=== PATIENT | female | born 1965 | race Two or more races ===

== ENCOUNTER 2020-03-19 13:30 | Inpatient (IN) | payer MEDICAID, OTHER ==
[~2020-03-19] VITALS: Ht 172.7 cm; Wt 85.6 kg
[2020-03-19] MEDS: ACCU-CHEK COMFORT CURVE STRIP VI SCH ×6 (02:25→23:35)
[2020-03-19] MEDS: ATORVASTATIN 20 MG TAB PO SCH (07:41)
[2020-03-19] MEDS ORDERED: InsuLIN R (HUMAN) 100 UNITS in SODIUM CHL 0.9% 99 ML IV SCH (14:00)
[2020-03-19] MEDS ORDERED: INSULIN LANTUS (GLARGINE) 1 /0.01ml (100units/ml) SC ONE (14:00)
[2020-03-19] MEDS ORDERED: DEXTROSE (50%) 50ML SYRG IV PRN (14:00)
[2020-03-19 15:02] LABS: Basophils # (auto) 0.1 10 ^3/uL (0-0.2); Basophils % (auto) 0.4 % (0.0-2.0); Eosinophils # (auto) 0 10 ^3/uL (0-0.8); Eosinophils % (auto) 0.1 % (0.0-7.0); Hemoglobin 12.4 g/dL (12.2-16.2); Lymphocytes # (auto) 0.6 10 ^3/uL (0.4-5.4); Lymphocytes % (auto) 4.8 % (10.0-50.0); Mean Corpuscular Hemoglobin 29.8 pg (28.0-32.0); Mean Corpuscular Hgb Conc. 32.6 g/dL (32.0-36.0); Mean Corpuscular Volume 91.5 fL (80.0-100.0); Monocytes # (auto) 0.8 10 ^3/uL (0-1.3); Monocytes % (auto) 6.2 % (0.0-12.0); Neutrophils # (auto) 11.6 10 ^3/uL (1.6-8.6); Neutrophils % (auto) 88.5 % (37.0-80.0); Platelet Count (auto) 242 10^3/uL (140-450); Red Blood Cells 4.15 10^6/uL (4.0-5.20); Red Cell Distribution Width 12.6 % (11.8-14.3); White Blood Cell 13.1 10^3/uL (4.4-10.8)
[2020-03-19 15:20] LABS: Calcium 8.3 mg/dL (8.5-10.1); Magnesium 2.7 mg/dL (1.6-2.6); Potassium 4.1 mmol/L (3.5-5.1)
[2020-03-19 15:29] LABS: BUN/Creatinine Ratio 38.9
[2020-03-19 15:46] LABS: Phosphorus 8.8 mg/dL (2.5-4.90)
[2020-03-19] MEDS ORDERED: NOREPINEPHRINE 8 MG/250ML KIT 250 ML IV SCH (16:00)
[2020-03-19] MEDS ORDERED: NOREPINEPHRINE 8 MG/250ML KIT 250 ML IV ONE (16:18)
[2020-03-19] MEDS: SODIUM CHLORIDE 0.9% 1,000 ML IV SCH ×5 (16:57→22:07)
[2020-03-19] MEDS ORDERED: MORPHINE SULF INJ 2 MG/ML SYRINGE 1ML IV PRN ×2 (17:15→18:15)
[2020-03-19] MEDS ORDERED: SODIUM CHLORIDE 0.9% 2,000 ML IV ONE (17:15)
[2020-03-19] MEDS ORDERED: NITROGLYCERIN 0.4 MG SL TAB SL PRN ×2 (17:15→18:15)
[2020-03-19] MEDS: InsuLIN R (HUMAN) 100 UNITS in SODIUM CHL 0.9% 99 ML IV SCH (17:51)
[2020-03-19] MEDS ORDERED: SODIUM CHLORIDE 0.9% 1,000 ML IV SCH (18:00)
[2020-03-19] MEDS ORDERED: cefTRIAXone 1GM/50ML D5W 50 ML IV ONE (18:15)
[2020-03-19] MEDS ORDERED: HYDROcodone-ACET 5/325MG TAB PO PRN (18:15)
[2020-03-19] MEDS ORDERED: ACETAMINOPHEN 325 MG TAB PO PRN (18:15)
[2020-03-19] MEDS ORDERED: DOCUSATE SOD 100 MG CAP PO PRN (18:15)
[2020-03-19] MEDS ORDERED: ALUM & MAG HYDROX-SIMETH LIQ(MAALOX) 30 ML PO PRN (18:15)
[2020-03-19] MEDS ORDERED: LORazepam 0.5 MG TAB PO PRN (18:15)
[2020-03-19] MEDS ORDERED: METOCLOPRAMIDE HCL 5MG/ml INJ 2ml VIAL IV PRN ×2 (18:15→19:30)
[2020-03-19] MEDS ORDERED: BACL10TA PO (18:42)
[2020-03-19] MEDS ORDERED: HYDR25TA5 PO (18:42)
[2020-03-19] MEDS ORDERED: ROSU10TA16 PO (18:42)
[2020-03-19] MEDS ORDERED: METF-771 PO (18:42)
[2020-03-19] MEDS ORDERED: FAMO40TA7 PO (18:42)
[2020-03-19] MEDS ORDERED: LISI-648 PO (18:42)
[2020-03-19] MEDS ORDERED: MELO10CA2 PO (18:42)
[2020-03-19] MEDS ORDERED: NORT50CA57 PO (18:42)
[2020-03-19] MEDS ORDERED: BUPR-60 PO (18:43)
[2020-03-19 19:27] LABS: Urine Bacteria FEW /hpf (None Seen); Urine Blood 3+ /uL (Negative); Urine Hyaline Cast FEW /lpf (0 - 2); Urine Mucus FEW (None Seen); Urine Specific Gravity 1.021 (1.001-1.035); Urine WBC 10 /hpf (0 - 5)
[2020-03-19 19:37] LABS: Alcohol, Urine < 3.0 mg/dL (0-10); Amphetamine Screen, Urine NEGATIVE (NEGATIVE); Barbiturate Scree,Urine NEGATIVE (NEGATIVE); Benzodiazephine Screen, Urine NEGATIVE (NEGATIVE); Cannabinoid Screen, Urine NEGATIVE (NEGATIVE); Cocaine Screen, Urine NEGATIVE (NEGATIVE); Opiate Scree,Urine NEGATIVE (NEGATIVE); Phencyclidine Screen, Urine NEGATIVE (NEGATIVE)
[2020-03-19 20:27] LABS: Anion Gap 25 (5-15); BUN/Creatinine Ratio 41.4; Calcium 8.8 mg/dL (8.5-10.1); Carbon Dioxide 12 mmol/L (21-32); Chloride 97 mmol/L (98-107); GFR African American 22 mL/min; GFR Non-African American 18 mL/min; Potassium 3.6 mmol/L (3.5-5.1); Sodium 134 mmol/L (136-145)
[2020-03-19 20:50] LABS: Blood Urea Nitrogen 118 mg/dL (7-18)
[2020-03-19 21:36] LABS: Hemoglobin 13.2 g/dL (12.2-16.2)
[2020-03-19 21:57] LABS: Cholesterol 166 mg/dL (< 200); HDL Cholesterol 39 mg/dL (40-59); LDL Cholesterol 65 mg/dL (< 100); Triglycerides 358 mg/dL (< 150)
[2020-03-19 21:58] LABS: Blood Alcohol < 3.0 mg/dL (0-5)
[2020-03-19 22:03] LABS: Glucose 436 mg/dL (74-106)
[2020-03-19 22:23] LABS: INR 1.04 (0.9-1.15); Partial Thromboplastin Time 24.9 sec (23.0-31.2)
[2020-03-19] MEDS: SODIUM BICARBONATE 50ML VIAL 100 ML in SOD CHL 0.45% 1,000 ML IV SCH (23:00)
[2020-03-19] MEDS ORDERED: SODIUM BICARBONATE 8.4 % INJ 50ML VIAL IV ONE ×2 (23:07→23:10)
[2020-03-19 23:56] LABS: BUN/Creatinine Ratio 42.4; Calcium 8.2 mg/dL (8.5-10.1); Potassium 3.1 mmol/L (3.5-5.1)
[2020-03-20] MEDS ORDERED: POTASSIUM CHLORIDE 40 MEQ, LIDOCAINE 1% (LOCAL ANESTH.) 4 ML in SODIUM CHL 0.9% 250 ML IV ONE ×2 (01:00→18:00)
[2020-03-20] MEDS ORDERED: PANTOPRAZOLE 40 MG/10 ML VIAL INJ IV ONE (01:15)
[2020-03-20] MEDS ORDERED: ALBUMIN 5% 250 ML IV ONE (01:45)
[2020-03-20] MEDS ORDERED: LORazepam 2MG/ML-1ML VIAL IV ONE (02:30)
[2020-03-20 02:40] LABS: BUN/Creatinine Ratio 44.7; Calcium 8.5 mg/dL (8.5-10.1); Potassium 3.4 mmol/L (3.5-5.1)
[2020-03-20] MEDS: InsuLIN R (HUMAN) 100 UNITS in SODIUM CHL 0.9% 99 ML IV SCH ×2 (02:40→14:11)
[2020-03-20] MEDS: SODIUM CHLORIDE 0.9% 1,000 ML IV SCH ×5 (06:53→10:15)
[2020-03-20] MEDS: ACCU-CHEK COMFORT CURVE STRIP VI SCH ×9 (07:30→17:40)
[2020-03-20] MEDS: buPROPion HCL 75 MG TAB PO SCH ×2 (07:44→17:40)
[2020-03-20 08:56] LABS: Hematocrit 31.8 % (36.0-46.0); Hemoglobin 11.2 g/dL (12.2-16.2); Mean Corpuscular Hemoglobin 30.3 pg (28.0-32.0); Mean Corpuscular Hgb Conc. 35.3 g/dL (32.0-36.0); Mean Corpuscular Volume 85.8 fL (80.0-100.0); Platelet Count (auto) 182 10^3/uL (140-450); Red Blood Cells 3.71 10^6/uL (4.0-5.20); Red Cell Distribution Width 12.6 % (11.8-14.3); White Blood Cell 6.5 10^3/uL (4.4-10.8)
[2020-03-20] MEDS ORDERED: cefTRIAXone 1GM/50ML D5W 50 ML IV SCH (09:00)
[2020-03-20 09:15] LABS: Albumin 2.2 g/dL (3.4-5.0); Calcium 7.7 mg/dL (8.5-10.1); INR 1.14 (0.9-1.15); Magnesium 2.1 mg/dL (1.6-2.6); Partial Thromboplastin Time 25.6 sec (23.0-31.2); Potassium 3.4 mmol/L (3.5-5.1)
[2020-03-20 09:18] LABS: Basophils % (manual) 0 (0.0-2.0); Blast Cells 0; Eosinophils % (manual) 0 (0-7); Promyelocytes % 0; Reactive Lymphocytes 0
[2020-03-20 09:28] LABS: Bilirubin, Total 0.2 mg/dL (0.2-1.0); Phosphorus 2.9 mg/dL (2.5-4.90); Total Protein 5.8 g/dL (6.4-8.2)
[2020-03-20 09:41] LABS: BUN/Creatinine Ratio 52.8
[2020-03-20] MEDS ORDERED: ASPirin 81 mg TAB PO SCH (10:00)
[2020-03-20] MEDS ORDERED: INSULIN LANTUS (GLARGINE) 1 /0.01ml (100units/ml) SC SCH (10:00)
[2020-03-20] MEDS ORDERED: PANTOPRAZOLE 40 MG/10 ML VIAL INJ IV SCH (10:00)
[2020-03-20] MEDS ORDERED: ENOXAPARIN SOD 40 MG/0.4 ML SYRINGE SC SCH (10:00)
[2020-03-20 10:04] LABS: Band Neutrophils % (manual) 15; Lymphocytes % (manual) 9 (10.0-50.0); Metamyelocytes % 2; Monocytes % (manual) 4 (0-12); Myelocytes % 1
[2020-03-20] MEDS: SODIUM BICARBONATE 50ML VIAL 100 ML in SOD CHL 0.45% 1,000 ML IV SCH (14:10)
[2020-03-20] MEDS ORDERED: D5W/SOD CHL 0.45%/KCL 20MEQ 1,000 ML IV SCH (14:15)
[2020-03-20] MEDS ORDERED: D5W/SOD CHL 0.45% 1,000 ML IV SCH ×2 (14:15)
[2020-03-20] MEDS ORDERED: ETOMIDATE (2MG/ML) 20ML VIAL IV ONE ×2 (14:51→15:00)
[2020-03-20] MEDS ORDERED: MIDAZOLAM DRIP 50 mg/50mL 50 ML IV ONE (14:52)
[2020-03-20] MEDS ORDERED: SUCCINYLCHOLINE CHLORIDE 20 MG/ML 10ML VIAL IV ONE ×2 (14:52→15:00)
[2020-03-20] MEDS: MIDAZOLAM DRIP 50 mg/50mL 50 ML IV SCH ×2 (15:02→18:05)
[2020-03-20 15:22] VITALS: BP 112/55
[2020-03-20] MEDS ORDERED: VANCOMYCIN PER PHARMACY 0 MG IV SCH (15:30)
[2020-03-20] MEDS ORDERED: VANCOMYCIN 1GM/250ML 250 ML IV ONE (15:45)
[2020-03-20] MEDS ORDERED: DEXTROSE (50%) 50ML SYRG IV PRN ×3 (15:45→17:15)
[2020-03-20] MEDS ORDERED: INSULIN LANTUS (GLARGINE) 1 /0.01ml (100units/ml) SC ONE (16:00)
[2020-03-20] MEDS ORDERED: ALBUMIN 25% 100 ML IV ONE (16:00)
[2020-03-20] MEDS ORDERED: NOREPINEPHRINE 8 MG/250ML KIT 250 ML IV ONE (16:12)
[2020-03-20] MEDS: fentaNYL Drip 2500mCg/250mlNS 250 ML IV SCH (16:14)
[2020-03-20] MEDS ORDERED: CLOTRIMAZOLE 1 % CREAM 15GM TOP ONE (16:15)
[2020-03-20] MEDS: NOREPINEPHRINE 8 MG/250ML KIT 250 ML IV SCH (16:24)
[2020-03-20] MEDS ORDERED: SUCRALFATE 1 GM/10 ML ORAL SUSP PO ONE (16:30)
[2020-03-20] MEDS ORDERED: SODIUM CHLORIDE 0.9% 1,000 ML IV ONE (16:30)
[2020-03-20] MEDS: D5W/ SOD CHL 0.9%/KCL 20MEQ 1,000 ML IV SCH (16:37)
[2020-03-20 16:38] VITALS: BP 110/53
[2020-03-20 17:17] LABS: Basophils # (auto) 0 10 ^3/uL (0-0.2); Basophils % (auto) 0.3 % (0.0-2.0); Eosinophils # (auto) 0 10 ^3/uL (0-0.8); Hematocrit 30.3 % (36.0-46.0); Hemoglobin 10.9 g/dL (12.2-16.2); Lymphocytes # (auto) 0.4 10 ^3/uL (0.4-5.4); Lymphocytes % (auto) 4.4 % (10.0-50.0); Mean Corpuscular Hemoglobin 30.7 pg (28.0-32.0); Mean Corpuscular Hgb Conc. 35.9 g/dL (32.0-36.0); Mean Corpuscular Volume 85.6 fL (80.0-100.0); Monocytes # (auto) 0.4 10 ^3/uL (0-1.3); Monocytes % (auto) 4.7 % (0.0-12.0); Neutrophils % (auto) 90.6 % (37.0-80.0); Nucleated Red Blood Cells % 0.1 %; Platelet Count (auto) 172 10^3/uL (140-450); Red Blood Cells 3.54 10^6/uL (4.0-5.20); Red Cell Distribution Width 12.8 % (11.8-14.3); White Blood Cell 8.8 10^3/uL (4.4-10.8)
[2020-03-20 17:31] LABS: BUN/Creatinine Ratio 60.8; Calcium 7.2 mg/dL (8.5-10.1)
[2020-03-20] MEDS ORDERED: ACETAMINOPHEN 650 mg PER 20.3 mL UD ONE (17:31)
[2020-03-20] MEDS: InsuLIN REG 1unit/0.01ml Soln (100units/ml) SC SCH (17:39)
[2020-03-20] MEDS ORDERED: InsuLIN REG 1unit/0.01ml Soln (100units/ml) SC SCH ×2 (18:00)
[2020-03-20] MEDS ORDERED: ACCU-CHEK COMFORT CURVE STRIP VI SCH ×2 (18:00)
[2020-03-20] MEDS ORDERED: POTASSIUM EFFERVESENT TAB 25 MEQ GT ONE (18:00)
[2020-03-20] MEDS ORDERED: SOD CHL 0.9%/ KCL 20MEQ 1,000 ML IV SCH (19:15)
[2020-03-20] MEDS ORDERED: POTASSIUM CHLORIDE 60 MEQ, LIDOCAINE 1% (LOCAL ANESTH.) 6 ML in SODIUM CHL 0.9% 500 ML IV ONE (19:30)
[2020-03-20 19:40] VITALS: BP 91/47
[2020-03-20] MEDS: CLOTRIMAZOLE 1 % CREAM 15GM TOP SCH (22:00)
[2020-03-20] MEDS: SUCRALFATE 1 GM/10 ML ORAL SUSP PO SCH (22:00)
[2020-03-20] MEDS: PANTOPRAZOLE 40 MG/10 ML VIAL INJ IV SCH (22:00)
[2020-03-20] MEDS: PIPERACILLIN-TAZOB 3.375GM 100 ML IV SCH (22:00)
[2020-03-20] MEDS: ATORVASTATIN 20 MG TAB PO SCH (22:00)
[2020-03-20] MEDS: NYSTATIN TOPICAL POWDER 15GM TOP SCH (22:00)
[2020-03-20] MEDS: NORTRIPTYLINE HCL 10 MG CAP PO SCH (22:00)
[2020-03-20 22:07] VITALS: BP 120/60
[2020-03-20] MEDS: ALBUMIN 25% 100 ML IV SCH (23:54)
[2020-03-21] VITALS (7 sets, daily range): BP systolic 85–130; BP diastolic 50–65
[2020-03-21] MEDS: ACCU-CHEK COMFORT CURVE STRIP VI SCH ×5 (00:06→23:54)
[2020-03-21] MEDS: InsuLIN REG 1unit/0.01ml Soln (100units/ml) SC SCH ×4 (00:08→18:01)
[2020-03-21] MEDS: D5W/ SOD CHL 0.9%/KCL 20MEQ 1,000 ML IV SCH ×2 (00:22→08:47)
[2020-03-21] MEDS: MIDAZOLAM DRIP 50 mg/50mL 50 ML IV SCH ×2 (02:22→04:02)
[2020-03-21 05:40] LABS: Basophils # (auto) 0 10 ^3/uL (0-0.2); Basophils % (auto) 0.1 % (0.0-2.0); Eosinophils # (auto) 0 10 ^3/uL (0-0.8); Eosinophils % (auto) 0.1 % (0.0-7.0); Hematocrit 27.9 % (36.0-46.0); Hemoglobin 9.9 g/dL (12.2-16.2); Lymphocytes # (auto) 0.6 10 ^3/uL (0.4-5.4); Lymphocytes % (auto) 6.9 % (10.0-50.0); Mean Corpuscular Hemoglobin 30.6 pg (28.0-32.0); Mean Corpuscular Hgb Conc. 35.6 g/dL (32.0-36.0); Mean Corpuscular Volume 85.9 fL (80.0-100.0); Monocytes # (auto) 0.3 10 ^3/uL (0-1.3); Monocytes % (auto) 3.5 % (0.0-12.0); Neutrophils # (auto) 8.4 10 ^3/uL (1.6-8.6); Neutrophils % (auto) 89.4 % (37.0-80.0); Platelet Count (auto) 131 10^3/uL (140-450); Red Blood Cells 3.25 10^6/uL (4.0-5.20); Red Cell Distribution Width 13.2 % (11.8-14.3); White Blood Cell 9.4 10^3/uL (4.4-10.8)
[2020-03-21 05:46] LABS: Potassium 3.7 mmol/L (3.5-5.1)
[2020-03-21 05:47] LABS: INR 1.35 (0.9-1.15); Partial Thromboplastin Time 30.8 sec (23.0-31.2)
[2020-03-21 06:01] LABS: Albumin 2.6 g/dL (3.4-5.0); BUN/Creatinine Ratio 55.9; Bilirubin, Total 0.4 mg/dL (0.2-1.0); Calcium 7.5 mg/dL (8.5-10.1); Magnesium 1.9 mg/dL (1.6-2.6); Total Protein 5.9 g/dL (6.4-8.2)
[2020-03-21] MEDS: PIPERACILLIN-TAZOB 3.375GM 100 ML IV SCH ×3 (06:17→22:05)
[2020-03-21] MEDS: ACETAMINOPHEN 650 mg PER 20.3 mL UD PO PRN ×2 (06:27→14:53)
[2020-03-21] MEDS: SUCRALFATE 1 GM/10 ML ORAL SUSP PO SCH ×4 (06:27→22:06)
[2020-03-21] MEDS: buPROPion HCL 75 MG TAB PO SCH ×2 (06:27→18:07)
[2020-03-21] MEDS: PANTOPRAZOLE 40 MG/10 ML VIAL INJ IV SCH ×2 (08:48→22:05)
[2020-03-21] MEDS: ALBUMIN 25% 100 ML IV SCH (08:48)
[2020-03-21] MEDS: CLOTRIMAZOLE 1 % CREAM 15GM TOP SCH ×2 (08:48→22:06)
[2020-03-21] MEDS: NYSTATIN TOPICAL POWDER 15GM TOP SCH ×2 (08:48→22:06)
[2020-03-21] MEDS ORDERED: INSULIN LANTUS (GLARGINE) 1 /0.01ml (100units/ml) SC ONE (11:45)
[2020-03-21] MEDS ORDERED: VANCOMYCIN 1GM/250ML 250 ML IV ONE (12:15)
[2020-03-21] MEDS ORDERED: SOD CHL 0.45% 1,000 ML IV ONE (14:45)
[2020-03-21] MEDS: fentaNYL Drip 2500mCg/250mlNS 250 ML IV SCH (15:00)
[2020-03-21] MEDS: SOD CHL 0.45% WITH 20MEQ KCL 1,000 ML IV SCH ×2 (15:12→23:05)
[2020-03-21 15:54] LABS: Amylase 154 U/L (25-115); Lipase 277 U/L (73-393)
[2020-03-21] MEDS: NOREPINEPHRINE 8 MG/250ML KIT 250 ML IV SCH (16:50)
[2020-03-21] MEDS: NORTRIPTYLINE HCL 10 MG CAP PO SCH (22:06)
[2020-03-21] MEDS: ATORVASTATIN 20 MG TAB PO SCH (22:06)
[2020-03-22] VITALS (76 sets, daily range): BP systolic 85–124; BP diastolic 50–74
[2020-03-22] MEDS: PIPERACILLIN-TAZOB 3.375GM 100 ML IV SCH (06:01)
[2020-03-22] MEDS: InsuLIN REG 1unit/0.01ml Soln (100units/ml) SC SCH ×4 (06:02→18:20)
[2020-03-22] MEDS: ACCU-CHEK COMFORT CURVE STRIP VI SCH ×3 (06:04→18:18)
[2020-03-22] MEDS: SUCRALFATE 1 GM/10 ML ORAL SUSP PO SCH ×4 (06:16→21:01)
[2020-03-22] MEDS: buPROPion HCL 75 MG TAB PO SCH ×2 (06:16→19:00)
[2020-03-22] MEDS: SOD CHL 0.45% WITH 20MEQ KCL 1,000 ML IV SCH (08:00)
[2020-03-22 08:49] LABS: Basophils # (auto) 0.1 10 ^3/uL (0-0.2); Basophils % (auto) 0.9 % (0.0-2.0); Eosinophils # (auto) 0.2 10 ^3/uL (0-0.8); Eosinophils % (auto) 1.3 % (0.0-7.0); Hematocrit 28.5 % (36.0-46.0); Hemoglobin 9.7 g/dL (12.2-16.2); Lymphocytes # (auto) 0.8 10 ^3/uL (0.4-5.4); Lymphocytes % (auto) 5.5 % (10.0-50.0); Mean Corpuscular Volume 88.2 fL (80.0-100.0); Monocytes # (auto) 0.7 10 ^3/uL (0-1.3); Monocytes % (auto) 4.6 % (0.0-12.0); Neutrophils # (auto) 13.4 10 ^3/uL (1.6-8.6); Neutrophils % (auto) 87.7 % (37.0-80.0); Platelet Count (auto) 151 10^3/uL (140-450); Red Blood Cells 3.24 10^6/uL (4.0-5.20); Red Cell Distribution Width 13.5 % (11.8-14.3); White Blood Cell 15.3 10^3/uL (4.4-10.8)
[2020-03-22 08:59] LABS: Potassium 4.7 mmol/L (3.5-5.1)
[2020-03-22 09:04] LABS: BUN/Creatinine Ratio 42.9; Calcium 7.4 mg/dL (8.5-10.1)
[2020-03-22] MEDS: NYSTATIN TOPICAL POWDER 15GM TOP SCH ×2 (10:00→21:02)
[2020-03-22] MEDS: CLOTRIMAZOLE 1 % CREAM 15GM TOP SCH ×2 (10:00→21:02)
[2020-03-22] MEDS: PANTOPRAZOLE 40 MG/10 ML VIAL INJ IV SCH (10:00)
[2020-03-22] MEDS: SOD CHL 0.45% 1,000 ML IV SCH (10:45)
[2020-03-22] MEDS: INSULIN LANTUS (GLARGINE) 1 /0.01ml (100units/ml) SC SCH (11:43)
[2020-03-22] MEDS ORDERED: VANCOMYCIN 1GM/250ML 250 ML IV ONE (12:00)
[2020-03-22] MEDS: CLINDAMYCIN 600MG IV 50 ML IV SCH ×2 (14:22→21:01)
[2020-03-22] MEDS: MIDAZOLAM DRIP 50 mg/50mL 50 ML IV SCH (15:00)
[2020-03-22] MEDS: fentaNYL Drip 2500mCg/250mlNS 250 ML IV SCH ×2 (15:00→20:00)
[2020-03-22] MEDS: MEROPENEM 1GM IVPB 100 ML IV SCH (16:00)
[2020-03-22] MEDS: NOREPINEPHRINE 8 MG/250ML KIT 250 ML IV SCH (16:30)
[2020-03-22] MEDS ORDERED: Glucerna 1.2 Cal 1Liter BOTTLE GT SCH (17:15)
[2020-03-22] MEDS: FAMOTIDINE (10MG/ML) 2ML VL IV SCH (21:01)
[2020-03-22] MEDS: ATORVASTATIN 20 MG TAB PO SCH (21:01)
[2020-03-22] MEDS: NORTRIPTYLINE HCL 10 MG CAP PO SCH (21:02)
[2020-03-23] VITALS (75 sets, daily range): BP systolic 91–137; BP diastolic 55–79
[2020-03-23] MEDS: MEROPENEM 1GM IVPB 100 ML IV SCH (03:00)
[2020-03-23 03:55] LABS: Basophils # (auto) 0 10 ^3/uL (0-0.2); Basophils % (auto) 0.3 % (0.0-2.0); Eosinophils # (auto) 0.2 10 ^3/uL (0-0.8); Eosinophils % (auto) 1.6 % (0.0-7.0); Hematocrit 28.4 % (36.0-46.0); Hemoglobin 9.7 g/dL (12.2-16.2); Lymphocytes # (auto) 0.7 10 ^3/uL (0.4-5.4); Lymphocytes % (auto) 4.7 % (10.0-50.0); Mean Corpuscular Hemoglobin 29.8 pg (28.0-32.0); Mean Corpuscular Volume 87.8 fL (80.0-100.0); Monocytes # (auto) 1.1 10 ^3/uL (0-1.3); Monocytes % (auto) 7.3 % (0.0-12.0); Neutrophils # (auto) 12.9 10 ^3/uL (1.6-8.6); Neutrophils % (auto) 86.1 % (37.0-80.0); Nucleated Red Blood Cells % 0.1 %; Platelet Count (auto) 162 10^3/uL (140-450); Red Blood Cells 3.24 10^6/uL (4.0-5.20); Red Cell Distribution Width 13.2 % (11.8-14.3)
[2020-03-23 05:06] LABS: Potassium 3.9 mmol/L (3.5-5.1)
[2020-03-23 05:12] LABS: BUN/Creatinine Ratio 37.6; Calcium 7.6 mg/dL (8.5-10.1)
[2020-03-23] MEDS: CLINDAMYCIN 600MG IV 50 ML IV SCH (06:01)
[2020-03-23] MEDS: SUCRALFATE 1 GM/10 ML ORAL SUSP PO SCH ×4 (06:04→22:00)
[2020-03-23] MEDS: ACCU-CHEK COMFORT CURVE STRIP VI SCH ×5 (06:04→23:46)
[2020-03-23] MEDS: NOREPINEPHRINE 8 MG/250ML KIT 250 ML IV SCH (06:04)
[2020-03-23] MEDS: buPROPion HCL 75 MG TAB PO SCH ×2 (06:04→17:58)
[2020-03-23] MEDS: InsuLIN REG 1unit/0.01ml Soln (100units/ml) SC SCH ×5 (06:04→23:46)
[2020-03-23] MEDS: SOD CHL 0.45% 1,000 ML IV SCH ×2 (07:00→13:25)
[2020-03-23] MEDS: INSULIN LANTUS (GLARGINE) 1 /0.01ml (100units/ml) SC SCH (09:25)
[2020-03-23] MEDS: CLOTRIMAZOLE 1 % CREAM 15GM TOP SCH ×2 (10:00→22:00)
[2020-03-23] MEDS: NYSTATIN TOPICAL POWDER 15GM TOP SCH ×2 (10:00→22:00)
[2020-03-23] MEDS: Glucerna Carbsteady SHAKE Vanilla 8oz NG SCH ×3 (14:00→22:00)
[2020-03-23] MEDS: levoFLOXacin 750MG 150 ML IV SCH (14:26)
[2020-03-23] MEDS: LINEZOLID 600MG/300ML 300 ML IV SCH (17:57)
[2020-03-23] MEDS: MIDAZOLAM DRIP 50 mg/50mL 50 ML IV SCH (19:03)
[2020-03-23] MEDS: NORTRIPTYLINE HCL 10 MG CAP PO SCH (22:00)
[2020-03-23] MEDS: FAMOTIDINE (10MG/ML) 2ML VL IV SCH (22:00)
[2020-03-23] MEDS: ATORVASTATIN 20 MG TAB PO SCH (22:00)
[2020-03-23] MEDS: fentaNYL Drip 2500mCg/250mlNS 250 ML IV SCH (23:20)
[2020-03-24] VITALS (88 sets, daily range): BP systolic 88–129; BP diastolic 57–98
[2020-03-24] MEDS: Glucerna Carbsteady SHAKE Vanilla 8oz NG SCH ×6 (02:14→22:28)
[2020-03-24 04:15] LABS: Basophils # (auto) 0 10 ^3/uL (0-0.2); Basophils % (auto) 0.3 % (0.0-2.0); Eosinophils # (auto) 0.1 10 ^3/uL (0-0.8); Eosinophils % (auto) 0.7 % (0.0-7.0); Hematocrit 27.5 % (36.0-46.0); Hemoglobin 9.3 g/dL (12.2-16.2); Lymphocytes # (auto) 0.7 10 ^3/uL (0.4-5.4); Lymphocytes % (auto) 5.4 % (10.0-50.0); Mean Corpuscular Hemoglobin 29.6 pg (28.0-32.0); Mean Corpuscular Hgb Conc. 33.9 g/dL (32.0-36.0); Mean Corpuscular Volume 87.4 fL (80.0-100.0); Monocytes # (auto) 1.2 10 ^3/uL (0-1.3); Monocytes % (auto) 9.5 % (0.0-12.0); Neutrophils # (auto) 10.7 10 ^3/uL (1.6-8.6); Neutrophils % (auto) 84.1 % (37.0-80.0); Platelet Count (auto) 145 10^3/uL (140-450); Red Blood Cells 3.14 10^6/uL (4.0-5.20); Red Cell Distribution Width 13.7 % (11.8-14.3); White Blood Cell 12.8 10^3/uL (4.4-10.8)
[2020-03-24 04:35] LABS: Albumin 1.7 g/dL (3.4-5.0); BUN/Creatinine Ratio 37.1; Calcium 7.9 mg/dL (8.5-10.1); Potassium 3.4 mmol/L (3.5-5.1)
[2020-03-24 04:38] LABS: Bilirubin, Total 0.4 mg/dL (0.2-1.0); Total Protein 5.2 g/dL (6.4-8.2)
[2020-03-24] MEDS: ACCU-CHEK COMFORT CURVE STRIP VI SCH ×3 (05:55→17:27)
[2020-03-24] MEDS: InsuLIN REG 1unit/0.01ml Soln (100units/ml) SC SCH ×3 (05:56→18:04)
[2020-03-24] MEDS: LINEZOLID 600MG/300ML 300 ML IV SCH ×2 (05:58→17:27)
[2020-03-24] MEDS: SUCRALFATE 1 GM/10 ML ORAL SUSP PO SCH ×4 (06:34→22:25)
[2020-03-24] MEDS: buPROPion HCL 75 MG TAB PO SCH ×2 (06:34→17:28)
[2020-03-24] MEDS ORDERED: SOD CHL 0.45% 1,000 ML IV SCH (09:30)
[2020-03-24] MEDS: FREE WATER GT SCH ×4 (10:39→22:24)
[2020-03-24] MEDS: INSULIN LANTUS (GLARGINE) 1 /0.01ml (100units/ml) SC SCH ×2 (10:41→22:28)
[2020-03-24] MEDS: CLOTRIMAZOLE 1 % CREAM 15GM TOP SCH ×2 (10:41→22:26)
[2020-03-24] MEDS: NYSTATIN TOPICAL POWDER 15GM TOP SCH ×2 (10:41→22:26)
[2020-03-24] MEDS ORDERED: POTASSIUM EFFERVESENT TAB 25 MEQ GT ONE (11:30)
[2020-03-24] MEDS ORDERED: FLUCONAZOLE 200MG/100ML 100 ML IV ONE (13:15)
[2020-03-24] MEDS: MIDAZOLAM DRIP 50 mg/50mL 50 ML IV SCH (15:00)
[2020-03-24] MEDS: NOREPINEPHRINE 8 MG/250ML KIT 250 ML IV SCH (16:17)
[2020-03-24] MEDS: fentaNYL Drip 2500mCg/250mlNS 250 ML IV SCH (18:39)
[2020-03-24] MEDS: ATORVASTATIN 20 MG TAB PO SCH (22:25)
[2020-03-24] MEDS: NORTRIPTYLINE HCL 10 MG CAP PO SCH (22:25)
[2020-03-24] MEDS: FAMOTIDINE (10MG/ML) 2ML VL IV SCH (22:25)
[2020-03-25] VITALS (56 sets, daily range): BP systolic 90–114; BP diastolic 57–73
[2020-03-25] MEDS: FREE WATER GT SCH ×5 (02:00→16:54)
[2020-03-25] MEDS: Glucerna Carbsteady SHAKE Vanilla 8oz NG SCH ×6 (02:00→23:04)
[2020-03-25 04:22] LABS: Basophils # (auto) 0 10 ^3/uL (0-0.2); Basophils % (auto) 0.4 % (0.0-2.0); Eosinophils # (auto) 0.2 10 ^3/uL (0-0.8); Eosinophils % (auto) 1.6 % (0.0-7.0); Hematocrit 25.6 % (36.0-46.0); Lymphocytes # (auto) 0.7 10 ^3/uL (0.4-5.4); Lymphocytes % (auto) 7.3 % (10.0-50.0); Mean Corpuscular Hemoglobin 30.7 pg (28.0-32.0); Mean Corpuscular Volume 87.8 fL (80.0-100.0); Monocytes # (auto) 0.9 10 ^3/uL (0-1.3); Neutrophils % (auto) 81.7 % (37.0-80.0); Nucleated Red Blood Cells % 0.1 %; Platelet Count (auto) 128 10^3/uL (140-450); Red Blood Cells 2.92 10^6/uL (4.0-5.20); Red Cell Distribution Width 13.9 % (11.8-14.3); White Blood Cell 9.8 10^3/uL (4.4-10.8)
[2020-03-25 04:43] LABS: Albumin 1.5 g/dL (3.4-5.0); BUN/Creatinine Ratio 39.9; Calcium 8.2 mg/dL (8.5-10.1); Potassium 3.4 mmol/L (3.5-5.1)
[2020-03-25 04:46] LABS: Bilirubin, Total 0.3 mg/dL (0.2-1.0); Total Protein 5.3 g/dL (6.4-8.2)
[2020-03-25] MEDS: LINEZOLID 600MG/300ML 300 ML IV SCH ×2 (05:36→16:55)
[2020-03-25] MEDS: SUCRALFATE 1 GM/10 ML ORAL SUSP PO SCH ×4 (05:37→23:04)
[2020-03-25] MEDS: buPROPion HCL 75 MG TAB PO SCH ×2 (05:37→18:00)
[2020-03-25] MEDS: ACCU-CHEK COMFORT CURVE STRIP VI SCH ×5 (05:53→23:27)
[2020-03-25] MEDS: InsuLIN REG 1unit/0.01ml Soln (100units/ml) SC SCH ×5 (05:55→23:25)
[2020-03-25] MEDS ORDERED: ALBUMIN 25% 100 ML IV ONE (09:15)
[2020-03-25] MEDS ORDERED: FUROSEMIDE 40 MG/4 ML VIAL IV ONE (09:15)
[2020-03-25] MEDS ORDERED: POTASSIUM EFFERVESENT TAB 25 MEQ GT ONE (09:15)
[2020-03-25] MEDS: CLOTRIMAZOLE 1 % CREAM 15GM TOP SCH ×2 (09:36→23:07)
[2020-03-25] MEDS: FLUCONAZOLE 200MG/100ML 100 ML IV SCH (09:36)
[2020-03-25] MEDS: NYSTATIN TOPICAL POWDER 15GM TOP SCH ×2 (09:36→23:07)
[2020-03-25] MEDS: INSULIN LANTUS (GLARGINE) 1 /0.01ml (100units/ml) SC SCH ×2 (09:46→23:06)
[2020-03-25 14:13] LABS: INR 1.14 (0.9-1.15); Partial Thromboplastin Time 29.5 sec (23.0-31.2)
[2020-03-25] MEDS: levoFLOXacin 750MG 150 ML IV SCH (14:25)
[2020-03-25] MEDS: fentaNYL Drip 2500mCg/250mlNS 250 ML IV SCH (17:30)
[2020-03-25] MEDS: FAMOTIDINE (10MG/ML) 2ML VL IV SCH (23:03)
[2020-03-25] MEDS: NORTRIPTYLINE HCL 10 MG CAP PO SCH (23:05)
[2020-03-25] MEDS: ATORVASTATIN 20 MG TAB PO SCH (23:05)
[2020-03-26] VITALS (57 sets, daily range): BP systolic 94–121; BP diastolic 57–76
[2020-03-26] MEDS: Glucerna Carbsteady SHAKE Vanilla 8oz NG SCH ×5 (02:00→16:18)
[2020-03-26 05:09] LABS: Basophils # (auto) 0 10 ^3/uL (0-0.2); Eosinophils # (auto) 0.1 10 ^3/uL (0-0.8); Red Blood Cells 2.74 10^6/uL (4.0-5.20)
[2020-03-26 05:13] LABS: Basophils % (auto) 0.2 % (0.0-2.0); Eosinophils % (auto) 1.2 % (0.0-7.0); Hematocrit 24.1 % (36.0-46.0); Hemoglobin 8.3 g/dL (12.2-16.2); Lymphocytes % (auto) 8.8 % (10.0-50.0); Mean Corpuscular Hemoglobin 30.2 pg (28.0-32.0); Mean Corpuscular Hgb Conc. 34.4 g/dL (32.0-36.0); Mean Corpuscular Volume 87.8 fL (80.0-100.0); Monocytes # (auto) 0.7 10 ^3/uL (0-1.3); Neutrophils # (auto) 9.7 10 ^3/uL (1.6-8.6); Neutrophils % (auto) 83.8 % (37.0-80.0); Platelet Count (auto) 135 10^3/uL (140-450); Red Cell Distribution Width 13.3 % (11.8-14.3); White Blood Cell 11.6 10^3/uL (4.4-10.8)
[2020-03-26 05:27] LABS: Albumin 1.7 g/dL (3.4-5.0); Calcium 7.7 mg/dL (8.5-10.1); Magnesium 1.7 mg/dL (1.6-2.6)
[2020-03-26 05:30] LABS: BUN/Creatinine Ratio 38.6; Bilirubin, Total 0.3 mg/dL (0.2-1.0); Phosphorus 1.8 mg/dL (2.5-4.90); Total Protein 5.6 g/dL (6.4-8.2)
[2020-03-26] MEDS: LINEZOLID 600MG/300ML 300 ML IV SCH ×2 (06:00→17:00)
[2020-03-26] MEDS: ACCU-CHEK COMFORT CURVE STRIP VI SCH ×3 (06:00→17:08)
[2020-03-26] MEDS: InsuLIN REG 1unit/0.01ml Soln (100units/ml) SC SCH ×3 (06:46→17:08)
[2020-03-26] MEDS: SUCRALFATE 1 GM/10 ML ORAL SUSP PO SCH ×4 (06:47→21:29)
[2020-03-26] MEDS: buPROPion HCL 75 MG TAB PO SCH ×2 (06:47→18:00)
[2020-03-26] MEDS: CLOTRIMAZOLE 1 % CREAM 15GM TOP SCH ×2 (09:00→21:29)
[2020-03-26] MEDS: NYSTATIN TOPICAL POWDER 15GM TOP SCH ×2 (09:00→21:31)
[2020-03-26] MEDS: FLUCONAZOLE 200MG/100ML 100 ML IV SCH (09:00)
[2020-03-26] MEDS: INSULIN LANTUS (GLARGINE) 1 /0.01ml (100units/ml) SC SCH ×2 (09:00→21:31)
[2020-03-26] MEDS: fentaNYL Drip 2500mCg/250mlNS 250 ML IV SCH (11:33)
[2020-03-26] MEDS ORDERED: FLUCONAZOLE 200MG/100ML 100 ML IV ONE (12:00)
[2020-03-26] MEDS: MIDAZOLAM DRIP 50 mg/50mL 50 ML IV SCH ×2 (15:00→18:30)
[2020-03-26] MEDS: NOREPINEPHRINE 8 MG/250ML KIT 250 ML IV SCH (16:30)
[2020-03-26] MEDS: FAMOTIDINE (10MG/ML) 2ML VL IV SCH (21:29)
[2020-03-26] MEDS: NORTRIPTYLINE HCL 10 MG CAP PO SCH (21:30)
[2020-03-26] MEDS: ATORVASTATIN 20 MG TAB PO SCH (21:30)
[2020-03-27] VITALS (61 sets, daily range): BP systolic 100–146; BP diastolic 56–83
[2020-03-27] MEDS: InsuLIN REG 1unit/0.01ml Soln (100units/ml) SC SCH ×4 (00:28→17:00)
[2020-03-27 04:10] LABS: Basophils # (auto) 0 10 ^3/uL (0-0.2); Basophils % (auto) 0.2 % (0.0-2.0); Eosinophils # (auto) 0.1 10 ^3/uL (0-0.8); Eosinophils % (auto) 1.2 % (0.0-7.0); Hematocrit 24.8 % (36.0-46.0); Hemoglobin 8.3 g/dL (12.2-16.2); Lymphocytes # (auto) 1.1 10 ^3/uL (0.4-5.4); Lymphocytes % (auto) 9.2 % (10.0-50.0); Mean Corpuscular Hemoglobin 29.4 pg (28.0-32.0); Mean Corpuscular Hgb Conc. 33.4 g/dL (32.0-36.0); Mean Corpuscular Volume 88.1 fL (80.0-100.0); Monocytes # (auto) 0.6 10 ^3/uL (0-1.3); Monocytes % (auto) 4.8 % (0.0-12.0); Neutrophils # (auto) 9.8 10 ^3/uL (1.6-8.6); Neutrophils % (auto) 84.6 % (37.0-80.0); Platelet Count (auto) 159 10^3/uL (140-450); Red Blood Cells 2.82 10^6/uL (4.0-5.20); Red Cell Distribution Width 13.3 % (11.8-14.3); White Blood Cell 11.6 10^3/uL (4.4-10.8)
[2020-03-27 04:41] LABS: Potassium 3.9 mmol/L (3.5-5.1)
[2020-03-27 04:48] LABS: Albumin 1.5 g/dL (3.4-5.0); BUN/Creatinine Ratio 37.7; Bilirubin, Total 0.3 mg/dL (0.2-1.0); Calcium 6.3 mg/dL (8.5-10.1); Magnesium 1.6 mg/dL (1.6-2.6); Phosphorus 2.6 mg/dL (2.5-4.90); Total Protein 5.6 g/dL (6.4-8.2)
[2020-03-27] MEDS: fentaNYL Drip 2500mCg/250mlNS 250 ML IV SCH ×2 (05:55→19:19)
[2020-03-27] MEDS: LINEZOLID 600MG/300ML 300 ML IV SCH ×2 (05:56→17:00)
[2020-03-27] MEDS: ACCU-CHEK COMFORT CURVE STRIP VI SCH ×4 (05:56→17:00)
[2020-03-27] MEDS: MIDAZOLAM DRIP 50 mg/50mL 50 ML IV SCH ×2 (06:03→19:20)
[2020-03-27] MEDS: SUCRALFATE 1 GM/10 ML ORAL SUSP PO SCH ×4 (06:30→22:07)
[2020-03-27] MEDS: buPROPion HCL 75 MG TAB PO SCH ×2 (06:30→17:45)
[2020-03-27] MEDS: CLOTRIMAZOLE 1 % CREAM 15GM TOP SCH ×2 (09:32→22:07)
[2020-03-27] MEDS: NYSTATIN TOPICAL POWDER 15GM TOP SCH ×2 (09:32→22:07)
[2020-03-27] MEDS: INSULIN LANTUS (GLARGINE) 1 /0.01ml (100units/ml) SC SCH ×2 (09:33→22:08)
[2020-03-27] MEDS ORDERED: FLUCONAZOLE 200MG/100ML 100 ML IV SCH (10:00)
[2020-03-27] MEDS ORDERED: MICAFUNGIN SODIUM 100 MG in SODIUM CHL 0.9% 100 ML IV ONE (10:30)
[2020-03-27] MEDS ORDERED: ceFAZolin 1GM VL ONE (11:42)
[2020-03-27] MEDS ORDERED: MIDAZOLAM HCL 1MG/1ML-2 ML VIAL IV ONE (11:45)
[2020-03-27] MEDS ORDERED: fentaNYL CITRATE 100 MCG/2 ML VL IV ONE (11:45)
[2020-03-27] MEDS ORDERED: HYDROmorphone HCL 2 MG/ML VL IV PRN (12:00)
[2020-03-27] MEDS ORDERED: ROCURONIUM 10MG/ML 10ML VIAL IV ONE (12:30)
[2020-03-27] MEDS ORDERED: SODIUM CHLORIDE LOCK 10 ML ONE (12:38)
[2020-03-27] MEDS ORDERED: PHENYLEPHRINE HCL 10 MG/ML VL ONE (12:38)
[2020-03-27] MEDS: levoFLOXacin 750MG 150 ML IV SCH (13:52)
[2020-03-27] MEDS ORDERED: Glucerna 1.2 Cal 1Liter BOTTLE GT SCH (14:30)
[2020-03-27] MEDS: NOREPINEPHRINE 8 MG/250ML KIT 250 ML IV SCH (16:30)
[2020-03-27] MEDS: FAMOTIDINE (10MG/ML) 2ML VL IV SCH (22:07)
[2020-03-27] MEDS: ATORVASTATIN 20 MG TAB PO SCH (22:07)
[2020-03-27] MEDS: NORTRIPTYLINE HCL 10 MG CAP PO SCH (22:07)
[2020-03-28] VITALS (42 sets, daily range): BP systolic 100–134; BP diastolic 55–85
[2020-03-28] MEDS: ACCU-CHEK COMFORT CURVE STRIP VI SCH ×4 (00:11→17:00)
[2020-03-28] MEDS: InsuLIN REG 1unit/0.01ml Soln (100units/ml) SC SCH ×4 (00:11→17:00)
[2020-03-28 04:58] LABS: Basophils # (auto) 0 10 ^3/uL (0-0.2); Eosinophils # (auto) 0.1 10 ^3/uL (0-0.8); Monocytes # (auto) 0.3 10 ^3/uL (0-1.3)
[2020-03-28 05:01] LABS: Basophils % (auto) 0.3 % (0.0-2.0); Eosinophils % (auto) 1.3 % (0.0-7.0); Hematocrit 23.2 % (36.0-46.0); Hemoglobin 8.1 g/dL (12.2-16.2); Lymphocytes # (auto) 0.7 10 ^3/uL (0.4-5.4); Lymphocytes % (auto) 8.7 % (10.0-50.0); Mean Corpuscular Hemoglobin 30.7 pg (28.0-32.0); Mean Corpuscular Hgb Conc. 34.7 g/dL (32.0-36.0); Mean Corpuscular Volume 88.4 fL (80.0-100.0); Neutrophils # (auto) 7.1 10 ^3/uL (1.6-8.6); Neutrophils % (auto) 85.7 % (37.0-80.0); Platelet Count (auto) 201 10^3/uL (140-450); Red Blood Cells 2.62 10^6/uL (4.0-5.20); Red Cell Distribution Width 13.4 % (11.8-14.3); White Blood Cell 8.2 10^3/uL (4.4-10.8)
[2020-03-28 05:15] LABS: Albumin 1.4 g/dL (3.4-5.0); Magnesium 1.6 mg/dL (1.6-2.6); Potassium 3.8 mmol/L (3.5-5.1)
[2020-03-28 05:20] LABS: BUN/Creatinine Ratio 35.5; Bilirubin, Total 0.2 mg/dL (0.2-1.0); Phosphorus 3.4 mg/dL (2.5-4.90); Total Protein 5.7 g/dL (6.4-8.2)
[2020-03-28] MEDS: LINEZOLID 600MG/300ML 300 ML IV SCH (06:05)
[2020-03-28] MEDS: SUCRALFATE 1 GM/10 ML ORAL SUSP PO SCH ×4 (07:00→21:52)
[2020-03-28] MEDS: buPROPion HCL 75 MG TAB PO SCH ×2 (07:00→16:00)
[2020-03-28] MEDS: MIDAZOLAM DRIP 50 mg/50mL 50 ML IV SCH (08:32)
[2020-03-28] MEDS: INSULIN LANTUS (GLARGINE) 1 /0.01ml (100units/ml) SC SCH ×2 (09:25→22:03)
[2020-03-28] MEDS: CLOTRIMAZOLE 1 % CREAM 15GM TOP SCH ×2 (09:25→21:54)
[2020-03-28] MEDS: levoFLOXacin 750MG 150 ML IV SCH (09:25)
[2020-03-28] MEDS: NYSTATIN TOPICAL POWDER 15GM TOP SCH ×2 (09:25→21:54)
[2020-03-28] MEDS ORDERED: POTASSIUM EFFERVESENT TAB 25 MEQ GT ONE (09:30)
[2020-03-28] MEDS ORDERED: ALBUMIN 25% 100 ML IV ONE (09:30)
[2020-03-28] MEDS ORDERED: FUROSEMIDE 40 MG/4 ML VIAL IV ONE (09:30)
[2020-03-28] MEDS: MICAFUNGIN SODIUM 100 MG in SODIUM CHL 0.9% 100 ML IV SCH (10:00)
[2020-03-28] MEDS: DOXYCYCLINE 100MG/250ML 250 ML IV SCH (13:45)
[2020-03-28] MEDS ORDERED: CEFEPIME 1 GM in SODIUM CHL 0.9% 50 ML IV SCH (14:00)
[2020-03-28] MEDS: ACETAMINOPHEN 650 mg PER 20.3 mL UD PO PRN (15:27)
[2020-03-28] MEDS: CEFEPIME 1 GM in SODIUM CHL 0.9% 50 ML IV SCH ×2 (15:30→21:56)
[2020-03-28] MEDS: NOREPINEPHRINE 8 MG/250ML KIT 250 ML IV SCH ×2 (16:30→19:30)
[2020-03-28] MEDS: fentaNYL Drip 2500mCg/250mlNS 250 ML IV SCH (17:05)
[2020-03-28] MEDS: ATORVASTATIN 20 MG TAB PO SCH (21:52)
[2020-03-28] MEDS: FAMOTIDINE (10MG/ML) 2ML VL IV SCH (21:53)
[2020-03-28] MEDS: NORTRIPTYLINE HCL 10 MG CAP PO SCH (21:53)
[2020-03-29] VITALS (53 sets, daily range): BP systolic 103–150; BP diastolic 52–87
[2020-03-29] MEDS: ACCU-CHEK COMFORT CURVE STRIP VI SCH ×4 (00:29→16:55)
[2020-03-29] MEDS: InsuLIN REG 1unit/0.01ml Soln (100units/ml) SC SCH ×4 (00:31→16:50)
[2020-03-29] MEDS: DOXYCYCLINE 100MG/250ML 250 ML IV SCH ×2 (01:28→12:05)
[2020-03-29] MEDS: CEFEPIME 1 GM in SODIUM CHL 0.9% 50 ML IV SCH ×3 (06:13→21:42)
[2020-03-29] MEDS: SUCRALFATE 1 GM/10 ML ORAL SUSP PO SCH ×4 (06:13→21:43)
[2020-03-29] MEDS: buPROPion HCL 75 MG TAB PO SCH ×2 (06:16→17:00)
[2020-03-29 06:18] LABS: Basophils # (auto) 0 10 ^3/uL (0-0.2); Basophils % (auto) 0.4 % (0.0-2.0); Eosinophils # (auto) 0.1 10 ^3/uL (0-0.8); Eosinophils % (auto) 1.3 % (0.0-7.0); Hemoglobin 8.5 g/dL (12.2-16.2); Lymphocytes # (auto) 0.8 10 ^3/uL (0.4-5.4); Lymphocytes % (auto) 11.4 % (10.0-50.0); Mean Corpuscular Hemoglobin 30.1 pg (28.0-32.0); Mean Corpuscular Hgb Conc. 34.2 g/dL (32.0-36.0); Monocytes # (auto) 0.3 10 ^3/uL (0-1.3); Monocytes % (auto) 4.8 % (0.0-12.0); Neutrophils # (auto) 5.5 10 ^3/uL (1.6-8.6); Neutrophils % (auto) 82.1 % (37.0-80.0); Nucleated Red Blood Cells % 0.1 %; Platelet Count (auto) 265 10^3/uL (140-450); Red Blood Cells 2.84 10^6/uL (4.0-5.20); Red Cell Distribution Width 13.4 % (11.8-14.3); White Blood Cell 6.8 10^3/uL (4.4-10.8)
[2020-03-29 06:36] LABS: Albumin 1.6 g/dL (3.4-5.0); Calcium 8.3 mg/dL (8.5-10.1); Magnesium 1.2 mg/dL (1.6-2.6); Potassium 3.7 mmol/L (3.5-5.1)
[2020-03-29 06:39] LABS: Bilirubin, Total 0.2 mg/dL (0.2-1.0); Total Protein 5.9 g/dL (6.4-8.2)
[2020-03-29 06:43] LABS: Phosphorus 3.7 mg/dL (2.5-4.90)
[2020-03-29] MEDS: NYSTATIN TOPICAL POWDER 15GM TOP SCH ×2 (09:26→22:58)
[2020-03-29] MEDS: MICAFUNGIN SODIUM 100 MG in SODIUM CHL 0.9% 100 ML IV SCH (09:26)
[2020-03-29] MEDS: CLOTRIMAZOLE 1 % CREAM 15GM TOP SCH ×2 (09:26→22:58)
[2020-03-29] MEDS: INSULIN LANTUS (GLARGINE) 1 /0.01ml (100units/ml) SC SCH ×2 (09:35→22:00)
[2020-03-29] MEDS: fentaNYL Drip 2500mCg/250mlNS 250 ML IV SCH (13:55)
[2020-03-29] MEDS: MIDAZOLAM DRIP 50 mg/50mL 50 ML IV SCH (15:00)
[2020-03-29] MEDS: NOREPINEPHRINE 8 MG/250ML KIT 250 ML IV SCH (16:30)
[2020-03-29] MEDS: FAMOTIDINE (10MG/ML) 2ML VL IV SCH (21:42)
[2020-03-29] MEDS: ATORVASTATIN 20 MG TAB PO SCH (21:43)
[2020-03-29] MEDS: NORTRIPTYLINE HCL 10 MG CAP PO SCH (21:43)
[2020-03-30] VITALS (29 sets, daily range): BP systolic 100–155; BP diastolic 52–93
[2020-03-30] MEDS: ACCU-CHEK COMFORT CURVE STRIP VI SCH ×4 (00:21→18:03)
[2020-03-30] MEDS: InsuLIN REG 1unit/0.01ml Soln (100units/ml) SC SCH ×4 (00:32→18:03)
[2020-03-30] MEDS: DOXYCYCLINE 100MG/250ML 250 ML IV SCH ×2 (01:23→13:30)
[2020-03-30 05:14] LABS: Basophils # (auto) 0.1 10 ^3/uL (0-0.2); Eosinophils # (auto) 0.1 10 ^3/uL (0-0.8); Eosinophils % (auto) 1.4 % (0.0-7.0); Monocytes # (auto) 0.5 10 ^3/uL (0-1.3); Monocytes % (auto) 6.7 % (0.0-12.0); Red Cell Distribution Width 13.1 % (11.8-14.3); White Blood Cell 7.1 10^3/uL (4.4-10.8)
[2020-03-30 05:18] LABS: Basophils % (auto) 0.8 % (0.0-2.0); Hematocrit 22.5 % (36.0-46.0); Hemoglobin 7.6 g/dL (12.2-16.2); Lymphocytes # (auto) 1.1 10 ^3/uL (0.4-5.4); Lymphocytes % (auto) 15.8 % (10.0-50.0); Mean Corpuscular Hgb Conc. 33.9 g/dL (32.0-36.0); Mean Corpuscular Volume 88.5 fL (80.0-100.0); Neutrophils # (auto) 5.4 10 ^3/uL (1.6-8.6); Neutrophils % (auto) 75.3 % (37.0-80.0); Platelet Count (auto) 281 10^3/uL (140-450); Red Blood Cells 2.54 10^6/uL (4.0-5.20)
[2020-03-30 05:32] LABS: Albumin 1.5 g/dL (3.4-5.0); Calcium 8.1 mg/dL (8.5-10.1); Magnesium 1.4 mg/dL (1.6-2.6); Potassium 3.4 mmol/L (3.5-5.1)
[2020-03-30 05:37] LABS: BUN/Creatinine Ratio 30.8; Bilirubin, Total 0.4 mg/dL (0.2-1.0); Phosphorus 3.4 mg/dL (2.5-4.90); Total Protein 5.9 g/dL (6.4-8.2)
[2020-03-30] MEDS: CEFEPIME 1 GM in SODIUM CHL 0.9% 50 ML IV SCH ×3 (06:13→22:00)
[2020-03-30] MEDS: buPROPion HCL 75 MG TAB PO SCH ×3 (07:00→19:00)
[2020-03-30] MEDS: SUCRALFATE 1 GM/10 ML ORAL SUSP PO SCH ×5 (07:00→22:00)
[2020-03-30] MEDS: MIDAZOLAM DRIP 50 mg/50mL 50 ML IV SCH (09:35)
[2020-03-30] MEDS: NYSTATIN TOPICAL POWDER 15GM TOP SCH ×2 (10:00→22:00)
[2020-03-30] MEDS: INSULIN LANTUS (GLARGINE) 1 /0.01ml (100units/ml) SC SCH ×2 (10:00→22:00)
[2020-03-30] MEDS: MICAFUNGIN SODIUM 100 MG in SODIUM CHL 0.9% 100 ML IV SCH (10:00)
[2020-03-30] MEDS: CLOTRIMAZOLE 1 % CREAM 15GM TOP SCH ×2 (10:00→22:00)
[2020-03-30] MEDS: NOREPINEPHRINE 8 MG/250ML KIT 250 ML IV SCH (16:30)
[2020-03-30] MEDS: fentaNYL Drip 2500mCg/250mlNS 250 ML IV SCH (16:41)
[2020-03-30] MEDS: FAMOTIDINE (10MG/ML) 2ML VL IV SCH (22:00)
[2020-03-30] MEDS: ATORVASTATIN 20 MG TAB PO SCH (22:00)
[2020-03-30] MEDS: NORTRIPTYLINE HCL 10 MG CAP PO SCH (22:00)
[2020-03-31] VITALS (35 sets, daily range): BP systolic 92–157; BP diastolic 44–93
[2020-03-31] MEDS: DOXYCYCLINE 100MG/250ML 250 ML IV SCH ×2 (01:30→13:27)
[2020-03-31] MEDS: MIDAZOLAM DRIP 50 mg/50mL 50 ML IV SCH ×2 (02:00→15:00)
[2020-03-31] MEDS: fentaNYL Drip 2500mCg/250mlNS 250 ML IV SCH ×2 (03:00→15:00)
[2020-03-31] MEDS: ACETAMINOPHEN 650 mg PER 20.3 mL UD PO PRN (05:08)
[2020-03-31] MEDS: ACCU-CHEK COMFORT CURVE STRIP VI SCH ×4 (06:00→18:25)
[2020-03-31] MEDS: InsuLIN REG 1unit/0.01ml Soln (100units/ml) SC SCH ×5 (06:00→18:27)
[2020-03-31] MEDS: CEFEPIME 1 GM in SODIUM CHL 0.9% 50 ML IV SCH ×3 (06:00→21:26)
[2020-03-31 06:41] LABS: Basophils # (auto) 0.1 10 ^3/uL (0-0.2); Eosinophils # (auto) 0.1 10 ^3/uL (0-0.8); Lymphocytes # (auto) 1.6 10 ^3/uL (0.4-5.4)
[2020-03-31 06:44] LABS: Eosinophils % (auto) 1.8 % (0.0-7.0); Hematocrit 20.3 % (36.0-46.0); Lymphocytes % (auto) 25.2 % (10.0-50.0); Mean Corpuscular Hemoglobin 30.2 pg (28.0-32.0); Mean Corpuscular Hgb Conc. 34.5 g/dL (32.0-36.0); Mean Corpuscular Volume 87.6 fL (80.0-100.0); Monocytes # (auto) 0.5 10 ^3/uL (0-1.3); Monocytes % (auto) 7.1 % (0.0-12.0); Neutrophils # (auto) 4.1 10 ^3/uL (1.6-8.6); Neutrophils % (auto) 64.9 % (37.0-80.0); Platelet Count (auto) 281 10^3/uL (140-450); Red Blood Cells 2.32 10^6/uL (4.0-5.20); Red Cell Distribution Width 13.1 % (11.8-14.3); White Blood Cell 6.3 10^3/uL (4.4-10.8)
[2020-03-31] MEDS: buPROPion HCL 75 MG TAB PO SCH ×2 (07:00→19:00)
[2020-03-31] MEDS: SUCRALFATE 1 GM/10 ML ORAL SUSP PO SCH ×4 (07:00→21:27)
[2020-03-31 07:07] LABS: Calcium 8.1 mg/dL (8.5-10.1)
[2020-03-31 07:09] LABS: BUN/Creatinine Ratio 26.7
[2020-03-31] MEDS: NYSTATIN TOPICAL POWDER 15GM TOP SCH ×2 (10:00→21:27)
[2020-03-31] MEDS: CLOTRIMAZOLE 1 % CREAM 15GM TOP SCH ×2 (10:00→21:27)
[2020-03-31] MEDS: MICAFUNGIN SODIUM 100 MG in SODIUM CHL 0.9% 100 ML IV SCH (10:00)
[2020-03-31] MEDS: INSULIN LANTUS (GLARGINE) 1 /0.01ml (100units/ml) SC SCH ×2 (11:41→22:00)
[2020-03-31] MEDS: POTASSIUM CHL 20MEQ/100ML 100 ML IV SCH ×3 (13:30→17:15)
[2020-03-31] MEDS ORDERED: POLYETHYLENE GLYCOL 17 GM PWDR PO ONE (13:30)
[2020-03-31] MEDS: NOREPINEPHRINE 8 MG/250ML KIT 250 ML IV SCH (16:30)
[2020-03-31] MEDS: FAMOTIDINE (10MG/ML) 2ML VL IV SCH (21:26)
[2020-03-31] MEDS: ATORVASTATIN 20 MG TAB PO SCH (21:27)
[2020-03-31] MEDS: NORTRIPTYLINE HCL 10 MG CAP PO SCH (21:27)
[2020-04-01] VITALS (56 sets, daily range): BP systolic 97–168; BP diastolic 55–103
[2020-04-01] MEDS: DOXYCYCLINE 100MG/250ML 250 ML IV SCH ×2 (01:10→13:46)
[2020-04-01] MEDS: LORazepam 2MG/ML-1ML VIAL IV PRN ×3 (01:55→22:30)
[2020-04-01] MEDS: fentaNYL Drip 2500mCg/250mlNS 250 ML IV SCH (03:50)
[2020-04-01 05:01] LABS: Basophils # (auto) 0.1 10 ^3/uL (0-0.2); Basophils % (auto) 1.7 % (0.0-2.0); Eosinophils # (auto) 0.2 10 ^3/uL (0-0.8); Eosinophils % (auto) 2.3 % (0.0-7.0); Hematocrit 26.2 % (36.0-46.0); Lymphocytes # (auto) 1.2 10 ^3/uL (0.4-5.4); Lymphocytes % (auto) 17.4 % (10.0-50.0); Mean Corpuscular Hemoglobin 30.1 pg (28.0-32.0); Mean Corpuscular Hgb Conc. 34.4 g/dL (32.0-36.0); Mean Corpuscular Volume 87.6 fL (80.0-100.0); Monocytes # (auto) 0.7 10 ^3/uL (0-1.3); Monocytes % (auto) 9.7 % (0.0-12.0); Neutrophils # (auto) 4.9 10 ^3/uL (1.6-8.6); Neutrophils % (auto) 68.9 % (37.0-80.0); Nucleated Red Blood Cells % 0.1 %; Platelet Count (auto) 326 10^3/uL (140-450); Red Blood Cells 2.98 10^6/uL (4.0-5.20); Red Cell Distribution Width 13.2 % (11.8-14.3)
[2020-04-01 05:16] LABS: Calcium 8.3 mg/dL (8.5-10.1); Potassium 3.5 mmol/L (3.5-5.1)
[2020-04-01] MEDS: InsuLIN REG 1unit/0.01ml Soln (100units/ml) SC SCH ×3 (05:27→18:00)
[2020-04-01] MEDS: SUCRALFATE 1 GM/10 ML ORAL SUSP PO SCH ×4 (05:27→21:54)
[2020-04-01] MEDS: ACCU-CHEK COMFORT CURVE STRIP VI SCH ×4 (05:27→18:00)
[2020-04-01] MEDS: CEFEPIME 1 GM in SODIUM CHL 0.9% 50 ML IV SCH ×3 (05:27→21:53)
[2020-04-01] MEDS: buPROPion HCL 75 MG TAB PO SCH ×2 (07:00→19:00)
[2020-04-01] MEDS: NYSTATIN TOPICAL POWDER 15GM TOP SCH ×2 (09:33→21:54)
[2020-04-01] MEDS: CLOTRIMAZOLE 1 % CREAM 15GM TOP SCH ×2 (09:33→21:54)
[2020-04-01] MEDS: MICAFUNGIN SODIUM 100 MG in SODIUM CHL 0.9% 100 ML IV SCH (09:33)
[2020-04-01] MEDS: FAMOTIDINE (10MG/ML) 2ML VL IV SCH ×2 (09:33→21:53)
[2020-04-01] MEDS: INSULIN LANTUS (GLARGINE) 1 /0.01ml (100units/ml) SC SCH ×2 (12:00→22:00)
[2020-04-01] MEDS: MIDAZOLAM DRIP 50 mg/50mL 50 ML IV SCH (15:00)
[2020-04-01] MEDS: NOREPINEPHRINE 8 MG/250ML KIT 250 ML IV SCH (16:30)
[2020-04-01] MEDS: ATORVASTATIN 20 MG TAB PO SCH (21:54)
[2020-04-01] MEDS: NORTRIPTYLINE HCL 10 MG CAP PO SCH (21:54)
[2020-04-02] VITALS (89 sets, daily range): BP systolic 85–197; BP diastolic 42–140
[2020-04-02] MEDS: DOXYCYCLINE 100MG/250ML 250 ML IV SCH ×2 (00:39→15:39)
[2020-04-02] MEDS: fentaNYL Drip 2500mCg/250mlNS 250 ML IV SCH ×2 (04:00→22:40)
[2020-04-02] MEDS: CEFEPIME 1 GM in SODIUM CHL 0.9% 50 ML IV SCH ×3 (05:30→22:08)
[2020-04-02] MEDS: ACCU-CHEK COMFORT CURVE STRIP VI SCH ×5 (05:30→23:30)
[2020-04-02] MEDS: InsuLIN REG 1unit/0.01ml Soln (100units/ml) SC SCH ×5 (05:32→23:30)
[2020-04-02] MEDS: buPROPion HCL 75 MG TAB PO SCH ×2 (06:22→18:53)
[2020-04-02] MEDS: SUCRALFATE 1 GM/10 ML ORAL SUSP PO SCH ×4 (06:22→21:47)
[2020-04-02] MEDS: INSULIN LANTUS (GLARGINE) 1 /0.01ml (100units/ml) SC SCH ×2 (10:00→22:00)
[2020-04-02] MEDS: FAMOTIDINE (10MG/ML) 2ML VL IV SCH ×2 (10:45→21:47)
[2020-04-02] MEDS: NYSTATIN TOPICAL POWDER 15GM TOP SCH ×2 (12:27→22:09)
[2020-04-02] MEDS: MICAFUNGIN SODIUM 100 MG in SODIUM CHL 0.9% 100 ML IV SCH (12:27)
[2020-04-02] MEDS: CLOTRIMAZOLE 1 % CREAM 15GM TOP SCH ×2 (12:27→22:30)
[2020-04-02] MEDS: MIDAZOLAM DRIP 50 mg/50mL 50 ML IV SCH (15:00)
[2020-04-02] MEDS ORDERED: EPINEPHrine HCL 0.5 ML NEB ONE (15:33)
[2020-04-02] MEDS ORDERED: ALBUTEROL SULF 2.5 MG/0.5ML(0.5%) NEB SOLN ONE (15:33)
[2020-04-02] MEDS ORDERED: IPRATROPIUM BROM 0.5 MG/2.5ML INH SOL ONE (15:39)
[2020-04-02] MEDS ORDERED: ETOMIDATE (2MG/ML) 20ML VIAL IV ONE ×2 (15:48→16:30)
[2020-04-02] MEDS ORDERED: FUROSEMIDE 40 MG/4 ML VIAL ONE (15:48)
[2020-04-02] MEDS ORDERED: SUCCINYLCHOLINE CHLORIDE 20 MG/ML 10ML VIAL IV ONE (15:49)
[2020-04-02] MEDS ORDERED: PROPOFOL 100 ML IV ONE (16:10)
[2020-04-02] MEDS: PROPOFOL 100 ML IV SCH (16:30)
[2020-04-02] MEDS ORDERED: FUROSEMIDE 40 MG/4 ML VIAL IV ONE (16:30)
[2020-04-02] MEDS: NOREPINEPHRINE 8 MG/250ML KIT 250 ML IV SCH (16:30)
[2020-04-02] MEDS: NORTRIPTYLINE HCL 10 MG CAP PO SCH (21:47)
[2020-04-02] MEDS: ATORVASTATIN 20 MG TAB PO SCH (21:47)
[2020-04-03] VITALS (59 sets, daily range): BP systolic 85–150; BP diastolic 47–69
[2020-04-03] MEDS: DOXYCYCLINE 100MG/250ML 250 ML IV SCH ×2 (01:30→13:47)
[2020-04-03] MEDS: PROPOFOL 100 ML IV SCH ×2 (03:51→11:52)
[2020-04-03 05:09] LABS: BUN/Creatinine Ratio 24.6; Calcium 7.7 mg/dL (8.5-10.1)
[2020-04-03 05:14] LABS: Basophils # (auto) 0.1 10 ^3/uL (0-0.2); Basophils % (auto) 1.4 % (0.0-2.0); Eosinophils # (auto) 0.2 10 ^3/uL (0-0.8); Eosinophils % (auto) 3.1 % (0.0-7.0); Hematocrit 25.1 % (36.0-46.0); Hemoglobin 8.6 g/dL (12.2-16.2); Lymphocytes % (auto) 27.8 % (10.0-50.0); Mean Corpuscular Hemoglobin 29.8 pg (28.0-32.0); Mean Corpuscular Hgb Conc. 34.1 g/dL (32.0-36.0); Mean Corpuscular Volume 87.6 fL (80.0-100.0); Monocytes # (auto) 0.8 10 ^3/uL (0-1.3); Monocytes % (auto) 10.6 % (0.0-12.0); Neutrophils # (auto) 4.2 10 ^3/uL (1.6-8.6); Neutrophils % (auto) 57.1 % (37.0-80.0); Nucleated Red Blood Cells % 0.1 %; Platelet Count (auto) 396 10^3/uL (140-450); Red Blood Cells 2.87 10^6/uL (4.0-5.20); Red Cell Distribution Width 13.1 % (11.8-14.3); White Blood Cell 7.4 10^3/uL (4.4-10.8)
[2020-04-03 05:45] LABS: Potassium 2.5 mmol/L (3.5-5.1)
[2020-04-03] MEDS: InsuLIN REG 1unit/0.01ml Soln (100units/ml) SC SCH ×3 (06:00→18:00)
[2020-04-03] MEDS: ACCU-CHEK COMFORT CURVE STRIP VI SCH ×3 (06:05→18:13)
[2020-04-03] MEDS: CEFEPIME 1 GM in SODIUM CHL 0.9% 50 ML IV SCH ×3 (06:05→21:39)
[2020-04-03] MEDS: POTASSIUM CHL 20MEQ/100ML 100 ML IV SCH ×2 (06:38→08:15)
[2020-04-03] MEDS: SUCRALFATE 1 GM/10 ML ORAL SUSP PO SCH ×4 (06:39→22:12)
[2020-04-03] MEDS: buPROPion HCL 75 MG TAB PO SCH ×2 (06:39→22:11)
[2020-04-03] MEDS: CLOTRIMAZOLE 1 % CREAM 15GM TOP SCH ×2 (10:00→22:00)
[2020-04-03] MEDS: NYSTATIN TOPICAL POWDER 15GM TOP SCH ×2 (10:00→22:00)
[2020-04-03] MEDS: FAMOTIDINE (10MG/ML) 2ML VL IV SCH ×2 (10:00→22:12)
[2020-04-03] MEDS: MICAFUNGIN SODIUM 100 MG in SODIUM CHL 0.9% 100 ML IV SCH (10:00)
[2020-04-03] MEDS: NOREPINEPHRINE 8 MG/250ML KIT 250 ML IV SCH (10:00)
[2020-04-03] MEDS: INSULIN LANTUS (GLARGINE) 1 /0.01ml (100units/ml) SC SCH ×2 (12:00→21:38)
[2020-04-03] MEDS: MIDAZOLAM DRIP 50 mg/50mL 50 ML IV SCH (15:00)
[2020-04-03 16:20] LABS: INR 1.24 (0.9-1.15); Partial Thromboplastin Time 27.4 sec (23.0-31.2)
[2020-04-03] MEDS ORDERED: POTASSIUM CHLORIDE 40 MEQ, LIDOCAINE 1% (LOCAL ANESTH.) 4 ML in SODIUM CHL 0.9% 250 ML IV ONE (20:00)
[2020-04-03] MEDS: METOCLOPRAMIDE HCL 5MG/ml INJ 2ml VIAL IV SCH (22:12)
[2020-04-03] MEDS: NORTRIPTYLINE HCL 10 MG CAP PO SCH (22:13)
[2020-04-03] MEDS: ATORVASTATIN 20 MG TAB PO SCH (22:13)
[2020-04-03] MEDS: fentaNYL Drip 2500mCg/250mlNS 250 ML IV SCH (23:40)
[2020-04-04] VITALS (75 sets, daily range): BP systolic 76–176; BP diastolic 48–90
[2020-04-04] MEDS: ACCU-CHEK COMFORT CURVE STRIP VI SCH ×4 (00:27→17:35)
[2020-04-04] MEDS: DOXYCYCLINE 100MG/250ML 250 ML IV SCH ×2 (01:45→13:51)
[2020-04-04 04:16] LABS: Basophils # (auto) 0.1 10 ^3/uL (0-0.2); Basophils % (auto) 1.5 % (0.0-2.0); Eosinophils # (auto) 0.3 10 ^3/uL (0-0.8); Eosinophils % (auto) 3.9 % (0.0-7.0); Hematocrit 24.8 % (36.0-46.0); Hemoglobin 8.6 g/dL (12.2-16.2); Lymphocytes # (auto) 2.3 10 ^3/uL (0.4-5.4); Lymphocytes % (auto) 27.6 % (10.0-50.0); Mean Corpuscular Hemoglobin 30.5 pg (28.0-32.0); Mean Corpuscular Hgb Conc. 34.9 g/dL (32.0-36.0); Mean Corpuscular Volume 87.4 fL (80.0-100.0); Monocytes # (auto) 0.9 10 ^3/uL (0-1.3); Monocytes % (auto) 11.2 % (0.0-12.0); Neutrophils # (auto) 4.6 10 ^3/uL (1.6-8.6); Neutrophils % (auto) 55.8 % (37.0-80.0); Nucleated Red Blood Cells % 0.1 %; Platelet Count (auto) 326 10^3/uL (140-450); Red Blood Cells 2.83 10^6/uL (4.0-5.20); Red Cell Distribution Width 12.7 % (11.8-14.3); White Blood Cell 8.2 10^3/uL (4.4-10.8)
[2020-04-04 04:32] LABS: BUN/Creatinine Ratio 20.3; Calcium 7.6 mg/dL (8.5-10.1); Potassium 3.4 mmol/L (3.5-5.1)
[2020-04-04] MEDS: InsuLIN REG 1unit/0.01ml Soln (100units/ml) SC SCH ×4 (06:00→17:35)
[2020-04-04 06:06] LABS: INR 1.18 (0.9-1.15); Partial Thromboplastin Time 27.5 sec (23.0-31.2)
[2020-04-04] MEDS: CEFEPIME 1 GM in SODIUM CHL 0.9% 50 ML IV SCH ×2 (06:21→15:00)
[2020-04-04] MEDS: buPROPion HCL 75 MG TAB PO SCH ×2 (06:22→18:31)
[2020-04-04] MEDS: METOCLOPRAMIDE HCL 5MG/ml INJ 2ml VIAL IV SCH ×3 (06:22→21:23)
[2020-04-04] MEDS: SUCRALFATE 1 GM/10 ML ORAL SUSP PO SCH ×4 (06:22→21:23)
[2020-04-04] MEDS: PROPOFOL 100 ML IV SCH (08:00)
[2020-04-04] MEDS ORDERED: ROCURONIUM 10MG/ML 10ML VIAL IV ONE (08:06)
[2020-04-04] MEDS ORDERED: LIDOCAINE W/ EPINEPHRINE 1% 20ML VIAL ONE ×2 (08:11→08:19)
[2020-04-04] MEDS ORDERED: PROPOFOL 10 MG/ML 20 ML IV ONE (08:42)
[2020-04-04] MEDS ORDERED: fentaNYL CITRATE 100 MCG/2 ML VL IV ONE (08:42)
[2020-04-04] MEDS ORDERED: PHENYLEPHRINE HCL 10 MG/ML VL IV ONE (08:42)
[2020-04-04] MEDS ORDERED: ePHEDrine SULFATE 50 MG/ML AMP IV ONE (08:42)
[2020-04-04] MEDS: INSULIN LANTUS (GLARGINE) 1 /0.01ml (100units/ml) SC SCH (10:10)
[2020-04-04] MEDS: MICAFUNGIN SODIUM 100 MG in SODIUM CHL 0.9% 100 ML IV SCH (10:17)
[2020-04-04] MEDS: CLOTRIMAZOLE 1 % CREAM 15GM TOP SCH ×2 (10:17→21:23)
[2020-04-04] MEDS: NYSTATIN TOPICAL POWDER 15GM TOP SCH ×2 (10:17→21:23)
[2020-04-04] MEDS: FAMOTIDINE (10MG/ML) 2ML VL IV SCH ×2 (10:17→21:23)
[2020-04-04] MEDS: fentaNYL Drip 2500mCg/250mlNS 250 ML IV SCH ×2 (11:15→21:08)
[2020-04-04] MEDS ORDERED: POTASSIUM CHL 20MEQ/100ML 100 ML IV ONE (13:00)
[2020-04-04] MEDS: MIDAZOLAM DRIP 50 mg/50mL 50 ML IV SCH (14:09)
[2020-04-04] MEDS: NOREPINEPHRINE 8 MG/250ML KIT 250 ML IV SCH (16:30)
[2020-04-04] MEDS: SULFAMETH-TRIMETH 80/16MG-ML 20 ML in D5W 5% 500 ML IV SCH (16:45)
[2020-04-04] MEDS: MEROPENEM 1GM IVPB 100 ML IV SCH (21:07)
[2020-04-04] MEDS: NORTRIPTYLINE HCL 10 MG CAP PO SCH (21:23)
[2020-04-04] MEDS: ATORVASTATIN 20 MG TAB PO SCH (21:23)
[2020-04-05] VITALS (71 sets, daily range): BP systolic 64–166; BP diastolic 38–86
[2020-04-05] MEDS: ACCU-CHEK COMFORT CURVE STRIP VI SCH ×5 (00:05→23:42)
[2020-04-05] MEDS: PROPOFOL 100 ML IV SCH ×2 (01:00→10:45)
[2020-04-05] MEDS: SULFAMETH-TRIMETH 80/16MG-ML 20 ML in D5W 5% 500 ML IV SCH ×2 (04:00→17:00)
[2020-04-05 05:05] LABS: Albumin 1.6 g/dL (3.4-5.0); Potassium 3.6 mmol/L (3.5-5.1)
[2020-04-05 05:06] LABS: Basophils # (auto) 0.1 10 ^3/uL (0-0.2); Basophils % (auto) 1.1 % (0.0-2.0); Eosinophils # (auto) 0.3 10 ^3/uL (0-0.8); Eosinophils % (auto) 3.7 % (0.0-7.0); Hemoglobin 9.3 g/dL (12.2-16.2); Lymphocytes # (auto) 2.5 10 ^3/uL (0.4-5.4); Lymphocytes % (auto) 28.5 % (10.0-50.0); Mean Corpuscular Hemoglobin 29.6 pg (28.0-32.0); Mean Corpuscular Hgb Conc. 34.4 g/dL (32.0-36.0); Mean Corpuscular Volume 86.2 fL (80.0-100.0); Monocytes % (auto) 11.1 % (0.0-12.0); Neutrophils # (auto) 4.9 10 ^3/uL (1.6-8.6); Neutrophils % (auto) 55.6 % (37.0-80.0); Nucleated Red Blood Cells % 0.2 %; Platelet Count (auto) 551 10^3/uL (140-450); Red Blood Cells 3.13 10^6/uL (4.0-5.20); Red Cell Distribution Width 13.1 % (11.8-14.3); White Blood Cell 8.9 10^3/uL (4.4-10.8)
[2020-04-05 05:07] LABS: Bilirubin, Total 0.4 mg/dL (0.2-1.0); Total Protein 6.2 g/dL (6.4-8.2)
[2020-04-05] MEDS: METOCLOPRAMIDE HCL 5MG/ml INJ 2ml VIAL IV SCH ×3 (05:55→22:01)
[2020-04-05] MEDS: MEROPENEM 1GM IVPB 100 ML IV SCH ×3 (05:55→21:53)
[2020-04-05] MEDS: InsuLIN REG 1unit/0.01ml Soln (100units/ml) SC SCH ×5 (05:55→23:42)
[2020-04-05] MEDS: SUCRALFATE 1 GM/10 ML ORAL SUSP PO SCH ×4 (05:56→22:00)
[2020-04-05] MEDS: buPROPion HCL 75 MG TAB PO SCH ×2 (07:00→19:40)
[2020-04-05] MEDS ORDERED: MIDAZOLAM HCL 5 MG/ML-1ML VIAL ONE (08:16)
[2020-04-05] MEDS ORDERED: SODIUM CHLORIDE LOCK 10 ML ONE (08:16)
[2020-04-05] MEDS ORDERED: fentaNYL CITRATE 100 MCG/2 ML VL ONE (08:17)
[2020-04-05] MEDS ORDERED: diphenhdrAMINE HCL 50 MG/1 ML VL ONE (08:17)
[2020-04-05] MEDS ORDERED: EPINEPHrine HCL 1 MG/10 ML SYRG ONE (08:20)
[2020-04-05] MEDS: MICAFUNGIN SODIUM 100 MG in SODIUM CHL 0.9% 100 ML IV SCH (10:00)
[2020-04-05] MEDS: CLOTRIMAZOLE 1 % CREAM 15GM TOP SCH ×2 (10:00→22:00)
[2020-04-05] MEDS: PANTOPRAZOLE 40 MG/10 ML VIAL INJ IV SCH ×2 (10:00→21:53)
[2020-04-05] MEDS: NYSTATIN TOPICAL POWDER 15GM TOP SCH ×2 (10:00→22:00)
[2020-04-05] MEDS: NOREPINEPHRINE 8 MG/250ML KIT 250 ML IV SCH ×2 (11:54→18:00)
[2020-04-05] MEDS: fentaNYL Drip 2500mCg/250mlNS 250 ML IV SCH (11:55)
[2020-04-05] MEDS: MIDAZOLAM DRIP 50 mg/50mL 50 ML IV SCH (15:00)
[2020-04-05] MEDS: NORTRIPTYLINE HCL 10 MG CAP PO SCH (22:00)
[2020-04-05] MEDS: ATORVASTATIN 20 MG TAB PO SCH (22:00)
[2020-04-06] VITALS (102 sets, daily range): BP systolic 76–170; BP diastolic 43–95
[2020-04-06] MEDS: fentaNYL Drip 2500mCg/250mlNS 250 ML IV SCH (00:38)
[2020-04-06] MEDS: PROPOFOL 100 ML IV SCH (02:56)
[2020-04-06] MEDS: SULFAMETH-TRIMETH 80/16MG-ML 20 ML in D5W 5% 500 ML IV SCH ×2 (04:00→16:30)
[2020-04-06] MEDS: MEROPENEM 1GM IVPB 100 ML IV SCH ×3 (05:43→22:08)
[2020-04-06] MEDS: InsuLIN REG 1unit/0.01ml Soln (100units/ml) SC SCH ×3 (05:43→18:28)
[2020-04-06] MEDS: METOCLOPRAMIDE HCL 5MG/ml INJ 2ml VIAL IV SCH ×3 (05:43→22:08)
[2020-04-06] MEDS: ACCU-CHEK COMFORT CURVE STRIP VI SCH ×3 (05:43→18:10)
[2020-04-06] MEDS: buPROPion HCL 75 MG TAB PO SCH ×2 (07:00→19:42)
[2020-04-06] MEDS: SUCRALFATE 1 GM/10 ML ORAL SUSP PO SCH ×4 (07:00→22:00)
[2020-04-06] MEDS: MICAFUNGIN SODIUM 100 MG in SODIUM CHL 0.9% 100 ML IV SCH (10:57)
[2020-04-06] MEDS: PANTOPRAZOLE 40 MG/10 ML VIAL INJ IV SCH ×2 (10:57→22:08)
[2020-04-06] MEDS: CLOTRIMAZOLE 1 % CREAM 15GM TOP SCH ×2 (10:58→22:10)
[2020-04-06] MEDS: NYSTATIN TOPICAL POWDER 15GM TOP SCH ×2 (10:58→22:10)
[2020-04-06] MEDS: MORPHINE SULF INJ 2 MG/ML SYRINGE 1ML IV PRN (13:44)
[2020-04-06] MEDS: MIDAZOLAM DRIP 50 mg/50mL 50 ML IV SCH (15:00)
[2020-04-06] MEDS: LORazepam 2MG/ML-1ML VIAL IV PRN (16:35)
[2020-04-06] MEDS ORDERED: Glucerna 1.2 Cal 1Liter BOTTLE GT SCH (18:00)
[2020-04-06] MEDS: NOREPINEPHRINE 8 MG/250ML KIT 250 ML IV SCH (18:00)
[2020-04-06] MEDS: NORTRIPTYLINE HCL 10 MG CAP PO SCH (22:10)
[2020-04-06] MEDS: ATORVASTATIN 20 MG TAB PO SCH (22:10)
[2020-04-07] VITALS (50 sets, daily range): BP systolic 98–165; BP diastolic 50–80
[2020-04-07] MEDS: LORazepam 2MG/ML-1ML VIAL IV PRN ×2 (02:02→22:26)
[2020-04-07] MEDS: SULFAMETH-TRIMETH 80/16MG-ML 20 ML in D5W 5% 500 ML IV SCH ×2 (03:30→15:32)
[2020-04-07 05:12] LABS: Basophils # (auto) 0.1 10 ^3/uL (0-0.2); Eosinophils # (auto) 0.3 10 ^3/uL (0-0.8); Eosinophils % (auto) 3.7 % (0.0-7.0); Lymphocytes # (auto) 1.7 10 ^3/uL (0.4-5.4); Monocytes # (auto) 0.7 10 ^3/uL (0-1.3); Monocytes % (auto) 9.9 % (0.0-12.0); White Blood Cell 7.3 10^3/uL (4.4-10.8)
[2020-04-07 05:16] LABS: Hematocrit 23.9 % (36.0-46.0); Mean Corpuscular Hemoglobin 28.9 pg (28.0-32.0); Mean Corpuscular Hgb Conc. 33.5 g/dL (32.0-36.0); Mean Corpuscular Volume 86.3 fL (80.0-100.0); Neutrophils # (auto) 4.5 10 ^3/uL (1.6-8.6); Neutrophils % (auto) 62.4 % (37.0-80.0); Platelet Count (auto) 500 10^3/uL (140-450); Red Blood Cells 2.77 10^6/uL (4.0-5.20); Red Cell Distribution Width 12.7 % (11.8-14.3)
[2020-04-07] MEDS: MEROPENEM 1GM IVPB 100 ML IV SCH ×3 (05:32→21:45)
[2020-04-07] MEDS: METOCLOPRAMIDE HCL 5MG/ml INJ 2ml VIAL IV SCH ×3 (05:32→21:45)
[2020-04-07] MEDS: InsuLIN REG 1unit/0.01ml Soln (100units/ml) SC SCH ×4 (06:00→17:40)
[2020-04-07] MEDS: ACCU-CHEK COMFORT CURVE STRIP VI SCH ×4 (06:00→17:40)
[2020-04-07 06:47] LABS: Calcium 7.9 mg/dL (8.5-10.1); Potassium 3.5 mmol/L (3.5-5.1)
[2020-04-07 06:50] LABS: BUN/Creatinine Ratio 15.2
[2020-04-07] MEDS: SUCRALFATE 1 GM/10 ML ORAL SUSP PO SCH ×4 (06:58→21:27)
[2020-04-07] MEDS: buPROPion HCL 75 MG TAB PO SCH ×2 (06:58→19:00)
[2020-04-07] MEDS ORDERED: ONDANSETRON HCL 4 MG/2 ML VIAL ONE (09:14)
[2020-04-07] MEDS ORDERED: ONDANSETRON HCL 4 MG/2 ML VIAL IV PRN (09:15)
[2020-04-07] MEDS: NYSTATIN TOPICAL POWDER 15GM TOP SCH ×2 (10:01→21:27)
[2020-04-07] MEDS: PANTOPRAZOLE 40 MG/10 ML VIAL INJ IV SCH ×2 (10:01→21:45)
[2020-04-07] MEDS: CLOTRIMAZOLE 1 % CREAM 15GM TOP SCH ×2 (10:01→21:27)
[2020-04-07] MEDS: fentaNYL Drip 2500mCg/250mlNS 250 ML IV SCH (11:37)
[2020-04-07] MEDS: MIDAZOLAM DRIP 50 mg/50mL 50 ML IV SCH (11:37)
[2020-04-07] MEDS: MORPHINE SULF INJ 2 MG/ML SYRINGE 1ML IV PRN ×2 (12:53→19:41)
[2020-04-07] MEDS ORDERED: PROMETHAZINE HCL 25 MG/ML 1ML IV ONE (19:45)
[2020-04-07] MEDS: NORTRIPTYLINE HCL 10 MG CAP PO SCH (21:16)
[2020-04-07] MEDS: ATORVASTATIN 20 MG TAB PO SCH (21:19)
[2020-04-08] VITALS (21 sets, daily range): BP systolic 125–166; BP diastolic 62–107
[2020-04-08] MEDS ORDERED: VANCOMYCIN 1GM/250ML 0 ML IV ONE ×2 (00:15→00:19)
[2020-04-08] MEDS: InsuLIN REG 1unit/0.01ml Soln (100units/ml) SC SCH ×4 (00:18→17:35)
[2020-04-08] MEDS: ACCU-CHEK COMFORT CURVE STRIP VI SCH ×4 (00:21→17:34)
[2020-04-08] MEDS: MORPHINE SULF INJ 2 MG/ML SYRINGE 1ML IV PRN (02:13)
[2020-04-08] MEDS: SULFAMETH-TRIMETH 80/16MG-ML 20 ML in D5W 5% 500 ML IV SCH ×2 (04:30→16:10)
[2020-04-08 05:01] LABS: Basophils # (auto) 0.1 10 ^3/uL (0-0.2); Eosinophils # (auto) 0.2 10 ^3/uL (0-0.8); Hemoglobin 9.6 g/dL (12.2-16.2); Lymphocytes # (auto) 1.5 10 ^3/uL (0.4-5.4); Monocytes # (auto) 0.7 10 ^3/uL (0-1.3); Neutrophils # (auto) 5.4 10 ^3/uL (1.6-8.6); White Blood Cell 7.9 10^3/uL (4.4-10.8)
[2020-04-08 05:03] LABS: Basophils % (auto) 1.1 % (0.0-2.0); Eosinophils % (auto) 2.2 % (0.0-7.0); Hematocrit 27.8 % (36.0-46.0); Lymphocytes % (auto) 19.1 % (10.0-50.0); Mean Corpuscular Hemoglobin 29.1 pg (28.0-32.0); Mean Corpuscular Hgb Conc. 34.4 g/dL (32.0-36.0); Mean Corpuscular Volume 84.5 fL (80.0-100.0); Monocytes % (auto) 9.3 % (0.0-12.0); Neutrophils % (auto) 68.3 % (37.0-80.0); Platelet Count (auto) 615 10^3/uL (140-450); Red Blood Cells 3.28 10^6/uL (4.0-5.20)
[2020-04-08 05:29] LABS: Calcium 8.2 mg/dL (8.5-10.1); Potassium 3.4 mmol/L (3.5-5.1)
[2020-04-08 05:36] LABS: Albumin 1.7 g/dL (3.4-5.0); BUN/Creatinine Ratio 11.9; Bilirubin, Total 0.4 mg/dL (0.2-1.0); Total Protein 6.4 g/dL (6.4-8.2)
[2020-04-08 05:40] LABS: Magnesium 1.2 mg/dL (1.6-2.6)
[2020-04-08] MEDS: MEROPENEM 1GM IVPB 100 ML IV SCH ×3 (05:40→22:12)
[2020-04-08] MEDS: METOCLOPRAMIDE HCL 5MG/ml INJ 2ml VIAL IV SCH ×3 (05:40→17:36)
[2020-04-08] MEDS ORDERED: LABETALOL HCL 5 MG/ML 4ML SYRINGE IV ONE (05:57)
[2020-04-08] MEDS: LABETALOL HCL 5 MG/ML 4ML SYRINGE IV PRN ×2 (06:27→14:04)
[2020-04-08] MEDS: SUCRALFATE 1 GM/10 ML ORAL SUSP PO SCH ×4 (06:32→22:12)
[2020-04-08] MEDS: buPROPion HCL 75 MG TAB PO SCH ×2 (06:33→18:30)
[2020-04-08] MEDS: MAGNESIUM SULFATE 1GM/100ML 100 ML IV SCH ×2 (09:25→10:58)
[2020-04-08] MEDS: POTASSIUM CHL 20MEQ/100ML 100 ML IV SCH ×2 (09:25→11:41)
[2020-04-08] MEDS: NYSTATIN TOPICAL POWDER 15GM TOP SCH ×2 (09:26→22:14)
[2020-04-08] MEDS: CLOTRIMAZOLE 1 % CREAM 15GM TOP SCH ×2 (09:26→22:14)
[2020-04-08] MEDS: PANTOPRAZOLE 40 MG/10 ML VIAL INJ IV SCH ×2 (10:12→22:12)
[2020-04-08] MEDS: LORazepam 2MG/ML-1ML VIAL IV PRN (17:40)
[2020-04-08] MEDS: ATORVASTATIN 20 MG TAB PO SCH (22:12)
[2020-04-08] MEDS: NORTRIPTYLINE HCL 10 MG CAP PO SCH (22:14)
[2020-04-09] VITALS (21 sets, daily range): BP systolic 108–162; BP diastolic 55–92
[2020-04-09] MEDS: SULFAMETH-TRIMETH 80/16MG-ML 20 ML in D5W 5% 500 ML IV SCH ×2 (04:05→16:30)
[2020-04-09] MEDS: MEROPENEM 1GM IVPB 100 ML IV SCH ×3 (06:19→21:22)
[2020-04-09] MEDS: InsuLIN REG 1unit/0.01ml Soln (100units/ml) SC SCH ×4 (06:19→17:48)
[2020-04-09] MEDS: METOCLOPRAMIDE HCL 5MG/ml INJ 2ml VIAL IV SCH ×4 (06:19→17:48)
[2020-04-09] MEDS: ACCU-CHEK COMFORT CURVE STRIP VI SCH ×4 (06:20→17:48)
[2020-04-09] MEDS: buPROPion HCL 75 MG TAB PO SCH ×2 (06:20→18:33)
[2020-04-09] MEDS: SUCRALFATE 1 GM/10 ML ORAL SUSP PO SCH ×4 (06:20→21:23)
[2020-04-09] MEDS: PANTOPRAZOLE 40 MG/10 ML VIAL INJ IV SCH ×2 (09:46→21:23)
[2020-04-09] MEDS: CLOTRIMAZOLE 1 % CREAM 15GM TOP SCH ×2 (09:46→21:23)
[2020-04-09] MEDS: NYSTATIN TOPICAL POWDER 15GM TOP SCH ×2 (09:46→21:23)
[2020-04-09 09:55] LABS: Hematocrit 30.1 % (36.0-46.0); Hemoglobin 10.3 g/dL (12.2-16.2)
[2020-04-09 10:07] LABS: Magnesium 1.6 mg/dL (1.6-2.6); Potassium 4.2 mmol/L (3.5-5.1)
[2020-04-09] MEDS ORDERED: METOPROLOL TARTRATE 25 MG TAB PEG ONE (10:45)
[2020-04-09] MEDS: MAGNESIUM SULFATE 1GM/100ML 100 ML IV SCH ×2 (10:50→11:58)
[2020-04-09] MEDS ORDERED: Glucerna Carbsteady SHAKE Stawberry 8oz PO SCH (12:00)
[2020-04-09] MEDS: LORazepam 2MG/ML-1ML VIAL IV PRN (12:42)
[2020-04-09] MEDS: Glucerna Carbsteady SHAKE Stawberry 8oz PO SCH (17:48)
[2020-04-09] MEDS: METOPROLOL TARTRATE 25 MG TAB PEG SCH (21:22)
[2020-04-09] MEDS: NORTRIPTYLINE HCL 10 MG CAP PO SCH (21:23)
[2020-04-09] MEDS: ATORVASTATIN 20 MG TAB PO SCH (21:23)
[2020-04-10] MEDS: METOCLOPRAMIDE HCL 5MG/ml INJ 2ml VIAL IV SCH ×4 (01:09→18:28)
[2020-04-10] MEDS: ACCU-CHEK COMFORT CURVE STRIP VI SCH ×5 (01:10→23:58)
[2020-04-10] MEDS: InsuLIN REG 1unit/0.01ml Soln (100units/ml) SC SCH ×4 (01:18→17:37)
[2020-04-10] MEDS: SULFAMETH-TRIMETH 80/16MG-ML 20 ML in D5W 5% 500 ML IV SCH ×2 (03:56→18:00)
[2020-04-10 06:28] VITALS: BP 126/74
[2020-04-10] MEDS: MEROPENEM 1GM IVPB 100 ML IV SCH ×3 (06:45→21:14)
[2020-04-10] MEDS: Glucerna Carbsteady SHAKE Stawberry 8oz PO SCH ×5 (07:00→23:58)
[2020-04-10 07:03] LABS: Potassium 3.3 mmol/L (3.5-5.1)
[2020-04-10 07:12] LABS: BUN/Creatinine Ratio 11.5; Calcium 7.9 mg/dL (8.5-10.1)
[2020-04-10] MEDS: SUCRALFATE 1 GM/10 ML ORAL SUSP PO SCH ×4 (07:35→22:28)
[2020-04-10] MEDS: buPROPion HCL 75 MG TAB PO SCH ×3 (07:36→18:47)
[2020-04-10 09:00] VITALS: BP 140/79
[2020-04-10] MEDS: NYSTATIN TOPICAL POWDER 15GM TOP SCH ×2 (10:00→22:10)
[2020-04-10] MEDS: CLOTRIMAZOLE 1 % CREAM 15GM TOP SCH ×2 (10:00→22:10)
[2020-04-10] MEDS: PANTOPRAZOLE 40 MG/10 ML VIAL INJ IV SCH ×2 (10:15→21:14)
[2020-04-10] MEDS: POTASSIUM EFFERVESENT TAB 25 MEQ GT SCH (10:16)
[2020-04-10] MEDS: METOPROLOL TARTRATE 25 MG TAB PEG SCH ×2 (10:16→21:59)
[2020-04-10] MEDS: MORPHINE SULF INJ 2 MG/ML SYRINGE 1ML IV PRN (10:17)
[2020-04-10] MEDS: LEVALBUTEROL HCL 1.25 MG/3 ML NEB NEB SCH ×2 (12:45→18:26)
[2020-04-10] MEDS: IPRATROPIUM BROM 0.5 MG/2.5ML INH SOL NEB SCH ×2 (12:45→18:26)
[2020-04-10] MEDS: ACETYLCYSTEINE 10 %(100MG/ML) SOL 4ML NEB SCH ×2 (12:45→18:27)
[2020-04-10 13:00] VITALS: BP 126/66
[2020-04-10] MEDS: LORazepam 2MG/ML-1ML VIAL IV PRN ×2 (14:09→21:14)
[2020-04-10 16:37] VITALS: BP 115/73
[2020-04-10] MEDS: BUDESONIDE (INHALATION) 0.5 MG/2 ML NEB NEB SCH (18:26)
[2020-04-10 21:12] VITALS: BP 115/73
[2020-04-10] MEDS: ATORVASTATIN 20 MG TAB PO SCH (21:59)
[2020-04-10 22:00] VITALS: BP 137/86
[2020-04-10] MEDS: NORTRIPTYLINE HCL 10 MG CAP PO SCH (22:10)
[2020-04-11] MEDS: IPRATROPIUM BROM 0.5 MG/2.5ML INH SOL NEB SCH ×4 (00:03→18:23)
[2020-04-11] MEDS: LEVALBUTEROL HCL 1.25 MG/3 ML NEB NEB SCH ×4 (00:03→18:23)
[2020-04-11] MEDS: ACETYLCYSTEINE 10 %(100MG/ML) SOL 4ML NEB SCH ×4 (00:04→18:23)
[2020-04-11] MEDS: METOCLOPRAMIDE HCL 5MG/ml INJ 2ml VIAL IV SCH ×4 (00:06→17:50)
[2020-04-11] MEDS: InsuLIN REG 1unit/0.01ml Soln (100units/ml) SC SCH ×4 (00:13→19:43)
[2020-04-11] MEDS: SULFAMETH-TRIMETH 80/16MG-ML 20 ML in D5W 5% 500 ML IV SCH ×2 (04:00→18:00)
[2020-04-11] MEDS: MEROPENEM 1GM IVPB 100 ML IV SCH ×3 (04:57→21:53)
[2020-04-11] MEDS: ACCU-CHEK COMFORT CURVE STRIP VI SCH ×3 (04:58→17:50)
[2020-04-11 05:00] VITALS: BP 120/70
[2020-04-11] MEDS: Glucerna Carbsteady SHAKE Stawberry 8oz PO SCH ×3 (05:07→22:15)
[2020-04-11] MEDS: SUCRALFATE 1 GM/10 ML ORAL SUSP PEG SCH ×4 (05:39→21:53)
[2020-04-11] MEDS: buPROPion HCL 75 MG TAB PEG SCH ×2 (05:39→19:11)
[2020-04-11] MEDS: BUDESONIDE (INHALATION) 0.5 MG/2 ML NEB NEB SCH ×2 (06:41→18:23)
[2020-04-11 09:00] VITALS: BP 129/86
[2020-04-11] MEDS: POTASSIUM EFFERVESENT TAB 25 MEQ GT SCH (10:42)
[2020-04-11] MEDS: PANTOPRAZOLE 40 MG/10 ML VIAL INJ IV SCH ×2 (10:42→21:53)
[2020-04-11] MEDS: CLOTRIMAZOLE 1 % CREAM 15GM TOP SCH ×2 (10:44→21:54)
[2020-04-11] MEDS: NYSTATIN TOPICAL POWDER 15GM TOP SCH ×2 (10:44→21:54)
[2020-04-11 13:00] VITALS: BP 127/72
[2020-04-11 17:00] VITALS: BP 118/71
[2020-04-11] MEDS: NORTRIPTYLINE HCL 10 MG CAP PEG SCH (21:54)
[2020-04-11] MEDS: ATORVASTATIN 20 MG TAB PO SCH (21:54)
[2020-04-11 22:00] VITALS: BP 121/59
[2020-04-11] MEDS: METOPROLOL TARTRATE 25 MG TAB PEG SCH (22:16)
[2020-04-12] MEDS: IPRATROPIUM BROM 0.5 MG/2.5ML INH SOL NEB SCH ×4 (00:08→19:24)
[2020-04-12] MEDS: ACETYLCYSTEINE 10 %(100MG/ML) SOL 4ML NEB SCH ×4 (00:08→19:24)
[2020-04-12] MEDS: LEVALBUTEROL HCL 1.25 MG/3 ML NEB NEB SCH ×4 (00:08→19:24)
[2020-04-12] MEDS: InsuLIN REG 1unit/0.01ml Soln (100units/ml) SC SCH ×5 (00:23→23:56)
[2020-04-12] MEDS: METOCLOPRAMIDE HCL 5MG/ml INJ 2ml VIAL IV SCH ×4 (00:26→17:55)
[2020-04-12] MEDS: ACCU-CHEK COMFORT CURVE STRIP VI SCH ×5 (00:26→23:54)
[2020-04-12] MEDS: LORazepam 2MG/ML-1ML VIAL IV PRN (02:00)
[2020-04-12] MEDS: SULFAMETH-TRIMETH 80/16MG-ML 20 ML in D5W 5% 500 ML IV SCH ×2 (03:59→16:14)
[2020-04-12 05:33] VITALS: BP 131/62
[2020-04-12] MEDS: Glucerna Carbsteady SHAKE Stawberry 8oz PO SCH ×3 (05:52→21:51)
[2020-04-12] MEDS: MEROPENEM 1GM IVPB 100 ML IV SCH ×3 (05:52→21:48)
[2020-04-12] MEDS: buPROPion HCL 75 MG TAB PEG SCH ×2 (05:53→17:55)
[2020-04-12 05:57] LABS: Hematocrit 23.7 % (36.0-46.0); Hemoglobin 8.1 g/dL (12.2-16.2)
[2020-04-12] MEDS: SUCRALFATE 1 GM/10 ML ORAL SUSP PEG SCH ×4 (05:59→21:49)
[2020-04-12 06:15] LABS: Calcium 7.4 mg/dL (8.5-10.1); Potassium 3.9 mmol/L (3.5-5.1)
[2020-04-12 06:17] LABS: BUN/Creatinine Ratio 14.8
[2020-04-12] MEDS: BUDESONIDE (INHALATION) 0.5 MG/2 ML NEB NEB SCH ×2 (07:15→23:20)
[2020-04-12 09:00] VITALS: BP 130/65
[2020-04-12] MEDS: METOPROLOL TARTRATE 25 MG TAB PEG SCH ×2 (09:44→21:53)
[2020-04-12] MEDS: PANTOPRAZOLE 40 MG/10 ML VIAL INJ IV SCH ×2 (09:44→21:48)
[2020-04-12] MEDS: POTASSIUM EFFERVESENT TAB 25 MEQ GT SCH (09:44)
[2020-04-12] MEDS: NYSTATIN TOPICAL POWDER 15GM TOP SCH ×2 (09:45→21:50)
[2020-04-12] MEDS: CLOTRIMAZOLE 1 % CREAM 15GM TOP SCH ×2 (09:45→21:51)
[2020-04-12 12:43] VITALS: BP 127/68
[2020-04-12 17:00] VITALS: BP 119/70
[2020-04-12] MEDS: ATORVASTATIN 20 MG TAB PO SCH (21:49)
[2020-04-12] MEDS: NORTRIPTYLINE HCL 10 MG CAP PEG SCH (21:50)
[2020-04-12 22:00] VITALS: BP 136/68
[2020-04-13] MEDS: IPRATROPIUM BROM 0.5 MG/2.5ML INH SOL NEB SCH ×3 (00:50→12:30)
[2020-04-13] MEDS: LEVALBUTEROL HCL 1.25 MG/3 ML NEB NEB SCH ×3 (00:50→12:30)
[2020-04-13] MEDS: ACETYLCYSTEINE 10 %(100MG/ML) SOL 4ML NEB SCH ×3 (00:50→12:30)
[2020-04-13] MEDS: SULFAMETH-TRIMETH 80/16MG-ML 20 ML in D5W 5% 500 ML IV SCH ×2 (04:51→15:38)
[2020-04-13 05:00] VITALS: BP 120/69
[2020-04-13] MEDS: ACCU-CHEK COMFORT CURVE STRIP VI SCH ×2 (06:00→11:13)
[2020-04-13] MEDS: BUDESONIDE (INHALATION) 0.5 MG/2 ML NEB NEB SCH (06:15)
[2020-04-13] MEDS: InsuLIN REG 1unit/0.01ml Soln (100units/ml) SC SCH ×2 (06:50→11:16)
[2020-04-13] MEDS: Glucerna Carbsteady SHAKE Stawberry 8oz PO SCH ×3 (06:51→17:12)
[2020-04-13] MEDS: MEROPENEM 1GM IVPB 100 ML IV SCH ×2 (06:51→13:51)
[2020-04-13] MEDS: METOCLOPRAMIDE HCL 5MG/ml INJ 2ml VIAL IV SCH ×3 (06:51→11:19)
[2020-04-13] MEDS: SUCRALFATE 1 GM/10 ML ORAL SUSP PEG SCH ×3 (06:52→17:12)
[2020-04-13] MEDS: buPROPion HCL 75 MG TAB PEG SCH (07:18)
[2020-04-13 08:36] VITALS: BP 126/74
[2020-04-13] MEDS: PANTOPRAZOLE 40 MG/10 ML VIAL INJ IV SCH (08:55)
[2020-04-13] MEDS: POTASSIUM EFFERVESENT TAB 25 MEQ GT SCH (08:55)
[2020-04-13] MEDS: NYSTATIN TOPICAL POWDER 15GM TOP SCH (08:56)
[2020-04-13] MEDS: CLOTRIMAZOLE 1 % CREAM 15GM TOP SCH (08:56)
[2020-04-13] MEDS: METOPROLOL TARTRATE 25 MG TAB PEG SCH (08:56)
[2020-04-13 10:15] LABS: Hemoglobin 9.6 g/dL (12.2-16.2)
[2020-04-13 10:19] LABS: Hematocrit 28.2 % (36.0-46.0)
[2020-04-13] MEDS ORDERED: INSULIN 70/30 1unit/0.01ml Susp (100units/ml) SC ONE (11:15)
[2020-04-13 12:20] VITALS: BP 131/62
[2020-04-13 15:50] VITALS: BP 124/80
[2020-04-13] MEDS ORDERED: INSULIN 70/30 1unit/0.01ml Susp (100units/ml) SC SCH (22:00)
== END 2020-04-13 17:30 | DRG 5 ==
LOC: EDBD 13:30 → ER 13:30 → TELE 13:31 → CATH ICU 03-21 22:55 → ICU WEST 03-26 18:44 → TELE-EAST 04-09 23:10
PROVIDERS: ADMIT Hospitalist; ATTEND Internal Medicine
PROC: 02HV33Z Insertion of Infusion Device into Superior Vena Cava, Percutaneous Approach (ICD-10-PCS; 2020-03-19)
PROC: 4A143B0 Monitoring of Venous Pressure, Central, Percutaneous Approach (ICD-10-PCS; 2020-03-19)
PROC: 5A1955Z Respiratory Ventilation, Greater than 96 Consecutive Hours (ICD-10-PCS; principal; 2020-03-21)
PROC: 0BH17EZ Insertion of Endotracheal Airway into Trachea, Via Natural or Artificial Opening (ICD-10-PCS; 2020-03-21)
PROC: 0HD8XZZ Extraction of Buttock Skin, External Approach (ICD-10-PCS; 2020-03-27)
PROC: 30233N1 Transfusion of Nonautologous Red Blood Cells into Peripheral Vein, Percutaneous Approach (ICD-10-PCS; 2020-03-31)
PROC: 0B110F4 Bypass Trachea to Cutaneous with Tracheostomy Device, Open Approach (ICD-10-PCS; 2020-04-04)
PROC: 0DH63UZ Insertion of Feeding Device into Stomach, Percutaneous Approach (ICD-10-PCS; 2020-04-05)
PROC: 5A1955Z Respiratory Ventilation, Greater than 96 Consecutive Hours (ICD-10-PCS; 2020-04-06)
DX: A41.9 Sepsis, unspecified organism (principal); E11.10 Type 2 diabetes mellitus with ketoacidosis without coma; N17.0 Acute kidney failure with tubular necrosis; G93.41 Metabolic encephalopathy; N18.4 Chronic kidney disease, stage 4 (severe); K80.20 Calculus of gallbladder without cholecystitis without obstruction; F32.9 Major depressive disorder, single episode, unspecified; E43 Unspecified severe protein-calorie malnutrition; E86.0 Dehydration; L89.303 Pressure ulcer of unspecified buttock, stage 3; D64.9 Anemia, unspecified; R65.21 Severe sepsis with septic shock; J15.20 Pneumonia due to staphylococcus, unspecified; E78.5 Hyperlipidemia, unspecified; E11.22 Type 2 diabetes mellitus with diabetic chronic kidney disease; J96.01 Acute respiratory failure with hypoxia; E66.9 Obesity, unspecified; N39.0 Urinary tract infection, site not specified; E87.6 Hypokalemia; E87.0 Hyperosmolality and hypernatremia; K29.70 Gastritis, unspecified, without bleeding; L03.312 Cellulitis of back [any part except buttock and flank]; I12.9 Hypertensive chronic kidney disease with stage 1 through stage 4 chronic kidney disease, or unspecified chronic kidney disease; M16.12 Unilateral primary osteoarthritis, left hip; R13.10 Dysphagia, unspecified; Z20.822 Contact with and (suspected) exposure to COVID-19; E11.42 Type 2 diabetes mellitus with diabetic polyneuropathy; L89.159 Pressure ulcer of sacral region, unspecified stage; Z99.11 Dependence on respirator [ventilator] status; Z79.4 Long term (current) use of insulin; Z82.3 Family history of stroke; Z83.3 Family history of diabetes mellitus; Z90.710 Acquired absence of both cervix and uterus; Z68.30 Body mass index [BMI] 30.0-30.9, adult
CPT/HCPCS: 36415; 36600; 51702; 70450; 71045; 71250; 74176; 80048; 80053; 80061; 80202; 80307; 80320; 81001; 82010; 82150; 82565; 82805; 82962; 83036; 83690; 83735; 83880; 83930; 84100; 84132; 84443; 84484; 85007; 85014; 85018; 85025; 85027; 85379; 85610; 85730; 86850; 86900; 86901; 86920; 87040; 87070; 87075; 87077; 87081; 87086; 87088; 87186; 87205; 87426; 93005; 93306; 94002; 94003; 94640; 96365; 96367; 96375; 97110; 97163; 97530; 99291; A4605; C9113; G0378; J0330; J0690; J0696; J1450; J1815; J1956; J2001; J2185; J2248; J2250; J2405; J2543; J2704; J3480; J3490; J7060; P9047